=== PATIENT | male | born 1960 | race American Indian/Alaskan Native ===

== ENCOUNTER 2016-11-08 09:21 | Emergency (ER) | payer SELFPAY ==
[2016-11-08] MEDS ORDERED: DECADRON IM ONE (11:04)
[2016-11-08] MEDS ORDERED: ATROVENT IH ONE (11:04)
[2016-11-08] MEDS ORDERED: PROVENTIL IH ONE (11:04)
--- NOTE | 2016-11-08 11:10 | Emergency Department Report ---
HPI - General Chief Complaint: Adult Asthma Time Seen by Provider: 11/08/16 11:03 - HPI HPI: 55-year-old male with a history of asthma presents today with wheezing. Patient states he has been wheezing since 4 AM this morning. Positive for shortness of breath. Patient is breathing treatment and inhaler at 9 AM with temporary relief. Denies fever, chills, nausea, vomiting, chest pain, abdominal pain. ED Past Medical Hx - Past Medical History Hx Hypertension: No Hx Heart Attack/AMI: No Hx Congestive Heart Failure: No Hx Diabetes: No Hx Deep Vein Thrombosis: No Hx Pulmonary Embolism: No Hx Sickle Cell Disease: No Hx Psychiatric Treatment: Yes (DEPRESSION) Hx Asthma: Yes Hx COPD: No Hx Tuberculosis: No Hx HIV: No - Surgical History Hx Coronary Stent: No Hx Pacemaker: No Hx Internal Defibrillator: No - Social History Smoking Status: Never Smoker Substance Use Type: None - Medications Home Medications: Home Medications Medication Instructions Recorded Confirmed Last Taken Type Budesonide [Pulmicort Respules] 0.5 mg IH Q12HRT #1 nebu 08/10/16 Unknown Rx ALBUTEROL Inhaler [ProAir HFA 2 puff IH QID PRN #1 inha 11/08/16 Unknown Rx Inhaler] ALBUTEROL NEB's [Proventil 0.083% 2.5 mg IH TID PRN #30 nebu 11/08/16 Unknown Rx NEBS] Arformoterol Nebu [Brovana Nebu] 15 mcg IH Q12HRT #1 ml 11/08/16 Unknown Rx Budesoni/Formoterol 80-4.5(Nf) 2 puff IH BID #1 inha 11/08/16 Unknown Rx [Symbicort 80-4.5 (Nf)] predniSONE [Deltasone] 20 mg PO QDAY #5 tablet 11/08/16 Unknown Rx ED Review of Systems ROS: Stated complaint: ASTHMA Other details as noted in HPI Constitutional: denies: chills, fever, malaise Eyes: denies: eye pain ENT: denies: ear pain, throat pain, congestion Respiratory: shortness of breath, wheezing. denies: cough Cardiovascular: denies: chest pain, palpitations Endocrine: no symptoms reported Gastrointestinal: denies: abdominal pain, nausea, vomiting Neurological: denies: headache, weakness Physical Exam - Physical Exam Vital Signs: Vital Signs 11/08/16 09:42 Temperature 98.2 F Pulse Rate 110 H Respiratory 24 Rate Blood Pressure 140/80 O2 Sat by Pulse 99 Oximetry Physical Exam: GENERAL: The patient is well-developed and well-nourished. Patient is in NAD. HEAD: Normocephalic. Atraumatic. THROAT: No erythema, swelling or exudates. CHEST/LUNGS: Positive for expiratory wheezing. HEART/CARDIOVASCULAR: Tachycardic. Regular rhythm. ABDOMEN: Abdomen is soft, nontender. No guarding or rebound tenderness. EXTREMITIES: Peripheral pulses intact. Capillary refill less than 2 seconds. NEURO: Alert and oriented x 3. Normal gait. ED Course Vital Signs 11/08/16 09:42 Temperature 98.2 F Pulse Rate 110 H Respiratory 24 Rate Blood Pressure 140/80 O2 Sat by Pulse 99 Oximetry ED Medical Decision Making - Lab Data Vital Signs 11/08/16 11/08/16 09:42 12:08 Temperature 98.2 F Pulse Rate 110 H 95 H Respiratory 24 20 Rate Blood Pressure 140/80 Blood Pressure 139/84 [Right] O2 Sat by Pulse 99 100 Oximetry - Medical Decision Making 55-year-old male presents today with exacerbation. Patient was given Albuterol , Atrovent and Decadron. Lung rodriguez clear to auscultation post medication. Patient is in no acute distress at this time. He will be discharged home and is encouraged to follow up with a primary care provider. He will be sent home on albuterol inhaler, albuterol neb treatment, Symbicort, prednisone and is encouraged to return to the emergency room for any worsening symptoms. Critical care attestation.: If time is entered above; I have spent that time in minutes in the direct care of this critically ill patient, excluding procedure time. ED Disposition Clinical Impression: Asthma exacerbation Disposition: DISCHARGED TO HOME OR SELFCARE Is pt being admited?: No Does the pt Need Aspirin: No Condition: Stable Instructions: Asthma (ED) Additional Instructions: Follow with primary care provider. Return to the emergency department if symptoms worsen. Prescriptions: Arformoterol Nebu [Brovana Nebu] 15 mcg IH Q12HRT #1 ml predniSONE [Deltasone] 20 mg PO QDAY #5 tablet ALBUTEROL Inhaler [ProAir HFA Inhaler] 2 puff IH QID PRN #1 inha PRN Reason: Shortness Of Breath ALBUTEROL NEB's [Proventil 0.083% NEBS] 2.5 mg IH TID PRN #30 nebu PRN Reason: Wheezing Budesoni/Formoterol 80-4.5(Nf) [Symbicort 80-4.5 (Nf)] 2 puff IH BID #1 inha Referrals: PRIMARY CARE, [Primary Care Provider] - 3-5 Days [facility] [Outside] - 3-5 Days Forms: Work/School Release Form(ED) Time of Disposition: 11:54
[2016-11-08 12:09] VITALS: BP 139/84
== END 2016-11-08 12:20 | disposition home or self-care (01) ==
LOC: ED 09:21
DX: J45.901 Unspecified asthma with (acute) exacerbation (principal); F32.9 Major depressive disorder, single episode, unspecified
CPT/HCPCS: 96372; 99282; J1100

== ENCOUNTER 2016-11-22 12:02 | Emergency (ER) | payer OTHER ==
[2016-11-22] MEDS ORDERED: DUONEB 0.5 MG-3 MG/3 ML SOLN IH ONE (12:28)
[2016-11-22] MEDS ORDERED: DELTASONE PO ONE (12:28)
--- NOTE | 2016-11-22 14:36 | Emergency Department Report ---
HPI - General Chief Complaint: Adult Asthma Time Seen by Provider: 11/22/16 14:16 - HPI HPI: Patient is a 55-year-old male presents to ED complaining of a asthma exacerbation patient since 7 AM this morning. Patient state he had a breathing treatment of at home which helps for about an hour and he started to get set tightness in his chest. Patient has a nonproductive cough intermittently throughout the day. Patient states he has all his medication at home which consists of the albuterol nebulizers, Symbicort inhaler And albuterol inhaler Patient denies fever/chills/nausea/vomiting/chest pain/abdominal pain or other problems. ED Past Medical Hx - Past Medical History Hx Hypertension: No Hx Heart Attack/AMI: No Hx Congestive Heart Failure: No Hx Diabetes: No Hx Deep Vein Thrombosis: No Hx Pulmonary Embolism: No Hx Sickle Cell Disease: No Hx Psychiatric Treatment: Yes (DEPRESSION) Hx Asthma: Yes Hx COPD: No Hx Tuberculosis: No Hx HIV: No - Surgical History Hx Coronary Stent: No Hx Pacemaker: No Hx Internal Defibrillator: No - Social History Smoking Status: Never Smoker Substance Use Type: None - Medications Home Medications: Home Medications Medication Instructions Recorded Confirmed Last Taken Type Budesonide [Pulmicort Respules] 0.5 mg IH Q12HRT #1 nebu 08/10/16 Unknown Rx ALBUTEROL Inhaler [ProAir HFA 2 puff IH QID PRN #1 inha 11/08/16 Unknown Rx Inhaler] ALBUTEROL NEB's [Proventil 0.083% 2.5 mg IH TID PRN #30 nebu 11/08/16 Unknown Rx NEBS] Arformoterol Nebu [Brovana Nebu] 15 mcg IH Q12HRT #1 ml 11/08/16 Unknown Rx Budesoni/Formoterol 80-4.5(Nf) 2 puff IH BID #1 inha 11/08/16 Unknown Rx [Symbicort 80-4.5 (Nf)] predniSONE [Deltasone] 20 mg PO QDAY #10 tablet 11/22/16 Unknown Rx ED Review of Systems ROS: Stated complaint: ASTHMA/MADDI Other details as noted in HPI Constitutional: denies: chills, fever, weakness Eyes: denies: eye pain, eye discharge, vision change ENT: denies: ear pain, throat pain, congestion Respiratory: denies: cough, shortness of breath, SOB with exertion, wheezing Cardiovascular: denies: chest pain, palpitations Endocrine: no symptoms reported Gastrointestinal: denies: abdominal pain, nausea, diarrhea Genitourinary: denies: urgency, dysuria, testicular pain, testicular mass Musculoskeletal: denies: back pain, joint swelling, arthralgia, myalgia Skin: denies: rash, lesions Neurological: denies: headache, weakness, numbness, paresthesias, confusion, abnormal gait Psychiatric: denies: anxiety, depression Hematological/Lymphatic: denies: easy bleeding, easy bruising Physical Exam - Physical Exam Vital Signs: Vital Signs 11/22/16 11/22/16 12:23 12:46 Temperature 98.0 F Pulse Rate 93 H Pulse Rate [ 89 Right Lower Lobe] Respiratory 20 Rate Respiratory 18 Rate [Right Lower Lobe] Blood Pressure 116/76 O2 Sat by Pulse 98 Oximetry Physical Exam: GENERAL: Alert and oriented x3, no apparent distress, Normal Gait, atraumatic. HEAD: Head is normocephalic and a-traumatic. EYES: Extra ocular muscles are intact. Pupils are equal, round, and reactive to light and accommodation. EARS: symetrical, atraumatic, non tender, ear canal clear and moderate cerumen, tympanic membrance non inflamed. gross auditory nml bilaterally. NOSE: Nose symetrical, Nontender,Nares appeared normal. MOUTH:Mouth is well hydrated and without lesions. Tonsils nonerythematous or swollen, Uvula midline, Tongue not elevated. Mucous membranes are moist. Posterior pharynx clear, no exudate or lesions. Patent airways. NECK: Supple. Non edematous, No carotid bruits. No lymphadenopathy or thyromegaly. LUNGS: Symetrical with respiration, No wheezing, no rales or crackles, decreased breath sounds bilaterally. HEART: S1, S2 present, regular rate and rhythm without murmur, no rubs, no gallops. ABDOMEN: No organomegaly was noted,Positive bowel sounds, soft, and non- distended. . Nontender to palpation on all Quadrants, NO CVA tenderness. EXTREMITIES/MUSCULOSKELETAL: No cyanosis, clubbing, rash, lesions or edema. Full ROM bilaterally. UE/LE Pulses 2+ bilaterally. LE and UE 5+ strength bilaterally SKIN: Warm and dry, No lesions, No ulceration or induration present. ED Course Vital Signs 11/22/16 11/22/16 12:23 12:46 Temperature 98.0 F Pulse Rate 93 H Pulse Rate [ 89 Right Lower Lobe] Respiratory 20 Rate Respiratory 18 Rate [Right Lower Lobe] Blood Pressure 116/76 O2 Sat by Pulse 98 Oximetry ED Medical Decision Making - Medical Decision Making 55-year-old male presents with asthma exacerbation. Vital signs stable. Patient oxygen saturation at 98% patient is in no respiratory distress. ED course: Patient received one respiratory breathing treatment and one 125 mg of Solu-Medrol IM. Patient reports to feeling much better after treatment and medication administration. No wheezing heard bilaterally. Patient states she still has this medication at home and does not need a refill. Discussed medical patient need for prednisone and take as prescribed. Discussed the patient told for asthma triggers. Discussed to follow up with primary care physician in 3-5 days on patient states he verbally understands and will comply to follow-up. Critical care attestation.: If time is entered above; I have spent that time in minutes in the direct care of this critically ill patient, excluding procedure time. ED Disposition Clinical Impression: Asthma exacerbation Disposition: DISCHARGED TO HOME OR SELFCARE Is pt being admited?: No Does the pt Need Aspirin: No Condition: Stable Instructions: Asthma (ED) Additional Instructions: Following instructions as discussed. Prescriptions: predniSONE [Deltasone] 20 mg PO QDAY #10 tablet Referrals: PRIMARY CARE, [Primary Care Provider] [facility]5 Days [facility] [Outside] - 3-5 Days [facility] [Outside] - 3-5 Days [facility] [Outside] - 3-5 Days Forms: Work/School Release Form(ED) Time of Disposition: 14:58
[2016-11-22 14:46] VITALS: BP 121/81
== END 2016-11-22 15:16 | disposition home or self-care (01) ==
LOC: ED 12:02
DX: J45.901 Unspecified asthma with (acute) exacerbation (principal)
CPT/HCPCS: 96372; 99282; J2930

== ENCOUNTER 2016-11-28 05:44 | Emergency (ER) | payer SELFPAY ==
[2016-11-28 05:55] VITALS: BP 127/80
[2016-11-28] MEDS ORDERED: DUONEB 0.5 MG-3 MG/3 ML SOLN IH ONE (05:58)
--- NOTE | 2016-11-28 07:31 | Emergency Department Report ---
ED Asthma HPI - General Chief Complaint: Dyspnea/Respdistress Stated Complaint: ASTHMA Time Seen by Provider: 11/28/16 07:22 Source: patient Mode of arrival: Ambulatory Limitations: No Limitations - History of Present Illness Initial Comments: This is patient's 3rd visit to this ED for asthma this month. Patient presents today complaining of chest tightness and wheezing began last night. Reports nebulizer x2 only providing 1 hour-worth of relief. Denies chest pain, productive cough, fever, chills, N/V, recent illness. States only known exposure is recent yard work and cutting down trees. Patient has been hospitalization due to asthma about 6 months ago. Reports being compliant with his meds. Denies other acute complaints today. - Related Data Previous Rx's Medication Instructions Recorded Last Taken Type Budesonide [Pulmicort Respules] 0.5 mg IH Q12HRT #1 nebu 08/10/16 Unknown Rx Arformoterol Nebu [Brovana Nebu] 15 mcg IH Q12HRT #1 ml 11/08/16 Unknown Rx Budesoni/Formoterol 80-4.5(Nf) 2 puff IH BID #1 inha 11/08/16 Unknown Rx [Symbicort 80-4.5 (Nf)] ALBUTEROL Inhaler [ProAir HFA 2 puff IH QID PRN #1 inha 11/28/16 Unknown Rx Inhaler] ALBUTEROL NEB's [Proventil 0.083% 2.5 mg IH TID PRN #30 nebu 11/28/16 Unknown Rx NEBS] predniSONE [Deltasone] 20 mg PO QDAY #10 tablet 11/28/16 Unknown Rx Allergies Allergy/AdvReac Type Severity Reaction Status Date / Time ibuprofen [From Motrin] Allergy Unknown Verified 08/30/15 18:03 Penicillins AdvReac Swelling Verified 01/07/15 11:02 ED Review of Systems ROS: Stated complaint: ASTHMA Other details as noted in HPI Comment: All other systems reviewed and negative ED Past Medical Hx - Past Medical History Previous Medical History?: Yes Hx Hypertension: No Hx Heart Attack/AMI: No Hx Congestive Heart Failure: No Hx Diabetes: No Hx Deep Vein Thrombosis: No Hx Pulmonary Embolism: No Hx Sickle Cell Disease: No Hx Psychiatric Treatment: Yes (DEPRESSION) Hx Asthma: Yes Hx COPD: No Hx Tuberculosis: No Hx HIV: No - Surgical History Past Surgical History?: Yes Hx Coronary Stent: No Hx Pacemaker: No Hx Internal Defibrillator: No - Social History Smoking Status: Never Smoker Substance Use Type: None - Medications Home Medications: Home Medications Medication Instructions Recorded Confirmed Last Taken Type Budesonide [Pulmicort Respules] 0.5 mg IH Q12HRT #1 nebu 08/10/16 Unknown Rx Arformoterol Nebu [Brovana Nebu] 15 mcg IH Q12HRT #1 ml 11/08/16 Unknown Rx Budesoni/Formoterol 80-4.5(Nf) 2 puff IH BID #1 inha 11/08/16 Unknown Rx [Symbicort 80-4.5 (Nf)] ALBUTEROL Inhaler [ProAir HFA 2 puff IH QID PRN #1 inha 11/28/16 Unknown Rx Inhaler] ALBUTEROL NEB's [Proventil 0.083% 2.5 mg IH TID PRN #30 nebu 11/28/16 Unknown Rx NEBS] predniSONE [Deltasone] 20 mg PO QDAY #10 tablet 11/28/16 Unknown Rx ED Physical Exam - General Limitations: No Limitations General appearance: alert, in no apparent distress - Head Head exam: Present: atraumatic, normocephalic - Eye Eye exam: Present: normal appearance, PERRL, EOMI. Absent: scleral icterus, conjunctival injection, periorbital swelling, periorbital tenderness - ENT ENT exam: Present: normal orophraynx, mucous membranes moist, TM's normal bilaterally, normal external ear exam - Neck Neck exam: Present: normal inspection, full ROM. Absent: tenderness, meningismus, lymphadenopathy - Respiratory Respiratory exam: Present: wheezes (b/l ), decreased breath sounds (b/l lung base). Absent: respiratory distress, rales, rhonchi, stridor, chest wall tenderness, accessory muscle use, prolonged expiratory - Cardiovascular Cardiovascular Exam: Present: regular rate, normal rhythm - GI/Abdominal GI/Abdominal exam: Present: soft, normal bowel sounds. Absent: tenderness - Extremities Exam Extremities exam: Present: normal inspection, full ROM, normal capillary refill. Absent: tenderness, pedal edema, joint swelling, calf tenderness - Neurological Exam Neurological exam: Present: alert, oriented X3, normal gait, reflexes normal. Absent: motor sensory deficit - Psychiatric Psychiatric exam: Present: normal affect, normal mood - Skin Skin exam: Present: warm, dry, intact, normal color. Absent: rash, cyanosis, diaphoretic, pallor ED Course Vital Signs 11/28/16 11/28/16 05:49 06:25 Temperature 97.8 F Pulse Rate 93 H Pulse Rate [ 87 Throughout] Respiratory 22 Rate Respiratory 16 Rate [ Throughout] Blood Pressure 127/80 O2 Sat by Pulse 100 Oximetry ED Medical Decision Making - Medical Decision Making 56 YOM with acute asthma exacerbation. He reports breathing better post Solu- Medrol and to admit administration here ED. Patient is Stable. He will be DC'd on oral prednisone, albuterol inhaler and nebulizer (see prescriptions). Patient education, follow-up/referral, and return instructions provided. He verbalized understanding and is agreeable to plan. Critical care attestation.: If time is entered above; I have spent that time in minutes in the direct care of this critically ill patient, excluding procedure time. ED Disposition Clinical Impression: Asthma exacerbation Disposition: DISCHARGED TO HOME OR SELFCARE Is pt being admited?: No Does the pt Need Aspirin: No Condition: Stable Instructions: Asthma (ED) Additional Instructions: Follow instructions for care. Be compliant with and use medications as prescribed. Avoid known allergens and asthma aggravators. Follow-up with your PCP in 2-3 days for follow-up. Return to the ED for new or worsening conditions. Prescriptions: predniSONE [Deltasone] 20 mg PO QDAY #10 tablet ALBUTEROL Inhaler [ProAir HFA Inhaler] 2 puff IH QID PRN #1 inha PRN Reason: Shortness Of Breath ALBUTEROL NEB's [Proventil 0.083% NEBS] 2.5 mg IH TID PRN #30 nebu PRN Reason: Wheezing Referrals: [facility] [Outside] - 2-3 Days PRIMARY CARE, [Primary Care Provider] - 2-3 Days ALISON PIERRE MD [Staff Physician] - 2-3 Days
== END 2016-11-28 07:51 | disposition home or self-care (01) ==
LOC: ED 05:44
DX: J45.901 Unspecified asthma with (acute) exacerbation (principal); F32.9 Major depressive disorder, single episode, unspecified; Z88.0 Allergy status to penicillin; Z88.6 Allergy status to analgesic agent
CPT/HCPCS: 94640; 96372; 99282; J2930

== ENCOUNTER 2017-01-15 19:44 | Emergency (ER) | payer SELFPAY ==
[2017-01-15] MEDS ORDERED: DELTASONE PO ONE (21:55)
[2017-01-15] MEDS ORDERED: DUONEB 0.5 MG-3 MG/3 ML SOLN IH ONE (21:55)
--- NOTE | 2017-01-15 22:30 | Emergency Department Report ---
HPI - General Chief Complaint: Adult Asthma Time Seen by Provider: 01/15/17 21:55 - HPI HPI: The patient is a 56 yo male who presents for evaluation of dyspnea. The patient has a history of asthma. The patient states that for the past 5-6 hours she has experienced dyspnea, constantly, moderate to severe, exacerbated with exertion and activity. He states that his symptoms began after cutting his lawn. The patient denies fever, cough, chest pain, syncope, hemoptysis, unilateral leg swelling, recent immobilization, history of DVT or PE. ED Past Medical Hx - Past Medical History Previous Medical History?: Yes Hx Hypertension: No Hx Heart Attack/AMI: No Hx Congestive Heart Failure: No Hx Diabetes: No Hx Deep Vein Thrombosis: No Hx Pulmonary Embolism: No Hx Sickle Cell Disease: No Hx Psychiatric Treatment: Yes (DEPRESSION) Hx Asthma: Yes Hx COPD: No Hx Tuberculosis: No Hx HIV: No - Surgical History Past Surgical History?: No Hx Coronary Stent: No Hx Pacemaker: No Hx Internal Defibrillator: No - Social History Smoking Status: Never Smoker Substance Use Type: None - Medications Home Medications: Home Medications Medication Instructions Recorded Confirmed Last Taken Type Budesonide [Pulmicort Respules] 0.5 mg IH Q12HRT #1 nebu 08/10/16 Unknown Rx Arformoterol Nebu [Brovana Nebu] 15 mcg IH Q12HRT #1 ml 11/08/16 Unknown Rx Budesoni/Formoterol 80-4.5(Nf) 2 puff IH BID #1 inha 11/08/16 Unknown Rx [Symbicort 80-4.5 (Nf)] ALBUTEROL Inhaler [ProAir HFA 2 puff IH QID PRN #1 inha 11/28/16 Unknown Rx Inhaler] ALBUTEROL NEB's [Proventil 0.083% 2.5 mg IH TID PRN #30 nebu 11/28/16 Unknown Rx NEBS] predniSONE [Deltasone] 20 mg PO QDAY #10 tablet 11/28/16 Unknown Rx ALBUTEROL Inhaler [ProAir HFA 2 puff IH QID PRN #1 inhalation 01/15/17 Unknown Rx Inhaler] predniSONE [Deltasone] 20 mg PO QDAY #5 tab 01/15/17 Unknown Rx ED Review of Systems ROS: Stated complaint: ASTHMA Other details as noted in HPI Constitutional: denies: fever ENT: denies: throat or neck pain Respiratory: denies: cough reports shortness of breath Cardiovascular: denies: chest pain Endocrine: denies unexplained weight loss or gain Gastrointestinal: denies: abdominal pain, nausea Genitourinary: denies: dysuria Musculoskeletal: denies: leg swelling Skin: denies: rash Neurological: denies: headache Hematological/Lymphatic: denies: easy bleeding or easy bruising Psych: denies sadness or hopelessness Physical Exam - Physical Exam Vital Signs: Vital Signs 01/15/17 20:32 Temperature 98.2 F Pulse Rate 109 H Blood Pressure 138/83 O2 Sat by Pulse 97 Oximetry Physical Exam: General: well-nourished, well-developed, no acute distress Head: Normocephalic, atraumatic Eyes: normal sclera ENT: Mucous membranes are pink and moist Neck: trachea midline, neck supple, No neck stiffness, no cervical adenopathy Respiratory: Diminished breath sounds and wheezing present throughout lung rodriguez bilaterally, no costal retractions, no respiratory distress Cardio: S1 and S2 present, no murmurs, rubs, gallops, capillary refill is brisk Abdomen: Normoactive bowel sounds, soft abdomen, no rigidity, no guarding or rebound tenderness Musc: No pitting edema Skin: No rash Neuro: no facial drooping, normal speech Psych: Normal affect ED Course Vital Signs 01/15/17 20:32 Temperature 98.2 F Pulse Rate 109 H Blood Pressure 138/83 O2 Sat by Pulse 97 Oximetry ED Medical Decision Making - Medical Decision Making The patient was seen and examined by myself. The patient is placed on a front desk monitor and continuous pulse ox. On initial evaluation, the patient was found to be in no distress. Evaluation orders were placed. The patient is given a breathing treatment and prednisone for txt of COPD. The patient was reevaluated and reported that their symptoms were markedly improved. The patient is stable for discharge with outpatient follow-up. The patient is given follow-up and return instructions. The patient expressed understanding and agreed with the plan. The patient is given a prescription for prednisone. The patient is discharged in stable condition. Critical care attestation.: If time is entered above; I have spent that time in minutes in the direct care of this critically ill patient, excluding procedure time. ED Disposition Clinical Impression: Asthma exacerbation Disposition: DISCHARGED TO HOME OR SELFCARE Is pt being admited?: No Does the pt Need Aspirin: No Condition: Stable Instructions: Asthma (ED) Referrals: [facility] [Outside] - 3-5 Days Time of Disposition: 22:14
[2017-01-15 23:27] VITALS: BP 109/73
== END 2017-01-15 23:26 | disposition home or self-care (01) ==
LOC: ED 19:44
DX: J45.901 Unspecified asthma with (acute) exacerbation (principal); F32.9 Major depressive disorder, single episode, unspecified
CPT/HCPCS: 94640; 99283; J7512

== ENCOUNTER 2017-01-18 04:51 | Emergency (ER) | payer SELFPAY ==
[2017-01-18] MEDS ORDERED: MAGNESIUM SULFATE 2GM/50ML 2 GM/50 ML BAG IV ONE (05:07)
[2017-01-18 05:56] LABS: Anion Gap 16 mmol/L; BUN/Creatinine Ratio 7.69; Blood Urea Nitrogen 10 mg/dL (9-20); Calcium 8.7 mg/dL (8.4-10.2); Carbon Dioxide 26 mmol/L (22-30); Chloride 102.1 mmol/L (98-107); Glucose 107 mg/dL (75-100); Potassium 3.5 mmol/L (3.6-5.0); Sodium 141 mmol/L (137-145)
[2017-01-18 06:03] LABS: Basophils % (Auto) 0.9 % (0.0-1.8); Eosinophils % (Auto) 4.6 % (0.0-4.3); Hematocrit 41.6 % (35.5-45.6); Hemoglobin 13.2 gm/dl (11.8-15.2); Mean Corpuscular HGB Conc 32 % (32-34); Mean Corpuscular Hemoglobin 25 pg (28-32); Mean Corpuscular Volume 80 fl (84-94); Platelet Count 295 K/mm3 (140-440); Red Blood Count 5.22 M/mm3 (3.65-5.03); Red Cell Distribution Width 15.3 % (13.2-15.2); White Blood Count 8.5 K/mm3 (4.5-11.0)
--- NOTE | 2017-01-18 06:40 | Emergency Department Report ---
ED Asthma HPI - General Chief Complaint: Adult Asthma Stated Complaint: ASTHMA Time Seen by Provider: 01/18/17 06:13 Source: patient, EMS Mode of arrival: Stretcher Limitations: No Limitations - History of Present Illness Initial Comments: 56-year-old male presents to the emergency department via EMS complaining of difficulty breathing. Patient states he was outside yesterday afternoon cutting grass and began having difficulty breathing. He states he used his last abuse or nebulizer yesterday evening with minimal relief. Symptom onset was at approximately 6:30 PM. Patient states his symptoms progressively worsened during the night until he called EMS. En route to the emergency department, the patient was administered be drawn nebulizer and Solu-Medrol by EMS. Prior to my seeing the patient, the patient was administered more albuterol and 2 g of magnesium. At this time, the patient states he is feeling much better and has no complaints. MD Complaint: "asthma attack" -: Gradual, days(s) (1) Severity: moderate Context: allergen exposure Associated Symptoms: none Treatments Prior to Arrival: inhaled bronchodilator, IV steroid - Related Data Previous Rx's Medication Instructions Recorded Last Taken Type ALBUTEROL NEB's [Proventil 0.083% 2.5 mg IH TID PRN #30 neb 01/18/17 Unknown Rx NEBS] Albuterol Sulfate [Ventolin HFA] 2 puff IH Q4H PRN #1 hfa.aer.ad 01/18/17 Unknown Rx predniSONE [Deltasone] 3 tab PO QDAY #15 tab 01/18/17 Unknown Rx Allergies Allergy/AdvReac Type Severity Reaction Status Date / Time ibuprofen [From Motrin] Allergy Unknown Verified 01/15/17 20:32 Penicillins AdvReac Swelling Verified 01/15/17 20:32 ED Review of Systems ROS: Stated complaint: ASTHMA Other details as noted in HPI Comment: All other systems reviewed and negative Respiratory: shortness of breath, wheezing ED Past Medical Hx - Past Medical History Previous Medical History?: Yes Hx Hypertension: No Hx Heart Attack/AMI: No Hx Congestive Heart Failure: No Hx Diabetes: No Hx Deep Vein Thrombosis: No Hx Pulmonary Embolism: No Hx Sickle Cell Disease: No Hx Psychiatric Treatment: Yes (DEPRESSION) Hx Asthma: Yes Hx COPD: No Hx Tuberculosis: No Hx HIV: No - Surgical History Past Surgical History?: No Hx Coronary Stent: No Hx Pacemaker: No Hx Internal Defibrillator: No - Family History Family history: no significant - Social History Smoking Status: Former Smoker Substance Use Type: None - Medications Home Medications: Home Medications Medication Instructions Recorded Confirmed Last Taken Type ALBUTEROL NEB's [Proventil 0.083% 2.5 mg IH TID PRN #30 neb 01/18/17 Unknown Rx NEBS] Albuterol Sulfate [Ventolin HFA] 2 puff IH Q4H PRN #1 hfa.aer.ad 01/18/17 Unknown Rx predniSONE [Deltasone] 3 tab PO QDAY #15 tab 01/18/17 Unknown Rx ED Physical Exam - General Limitations: No Limitations General appearance: alert, in no apparent distress - Head Head exam: Present: atraumatic, normocephalic - Eye Eye exam: Present: normal appearance, PERRL, EOMI - ENT ENT exam: Present: normal exam, normal orophraynx, mucous membranes moist - Neck Neck exam: Present: normal inspection, full ROM. Absent: tenderness - Respiratory Respiratory exam: Present: normal lung sounds bilaterally. Absent: respiratory distress - Cardiovascular Cardiovascular Exam: Present: regular rate, normal rhythm, normal heart sounds - GI/Abdominal GI/Abdominal exam: Present: soft, normal bowel sounds. Absent: distended, tenderness - Extremities Exam Extremities exam: Present: normal inspection, full ROM. Absent: tenderness - Back Exam Back exam: Present: normal inspection, full ROM. Absent: tenderness - Neurological Exam Neurological exam: Present: alert, oriented X3. Absent: motor sensory deficit - Skin Skin exam: Present: warm, dry, intact ED Course Vital Signs 01/18/17 01/18/17 01/18/17 04:59 05:00 05:15 Pulse Rate 91 H Respiratory 29 H Rate Blood Pressure 109/90 109/90 131/68 O2 Sat by Pulse 97 96 98 Oximetry 01/18/17 01/18/17 05:20 06:11 Pulse Rate 89 Respiratory Rate Blood Pressure 137/75 O2 Sat by Pulse 96 94 Oximetry ED Medical Decision Making - Lab Data Result diagrams: 01/18/17 05:24 01/18/17 05:24 - EKG Data -: EKG Interpreted by [facility] EKG shows normal: sinus rhythm, axis, intervals, QRS complexes, ST-T waves Rate: normal - EKG Data When compared to previous EKG there are: no significant change Interpretation: normal EKG, unchanged when compared t (07/30/2016) - Radiology Data Radiology results: image reviewed interpreted by me: Chest x-ray shows no acute cardiopulmonary abnormality. - Medical Decision Making Lab and imaging results reviewed and discussed with the patient. Patient reports symptoms have resolved with medication. Patient will be discharged home with prescriptions for an albuterol inhaler, albuterol nebulizer, and oral steroids to follow up with his primary care physician. - Differential Diagnosis asthma exacerbation Critical care attestation.: If time is entered above; I have spent that time in minutes in the direct care of this critically ill patient, excluding procedure time. ED Disposition Clinical Impression: Asthma exacerbation Disposition: DISCHARGED TO HOME OR SELFCARE Is pt being admited?: No Condition: Stable Instructions: Asthma (ED) Prescriptions: ALBUTEROL NEB's [Proventil 0.083% NEBS] 2.5 mg IH TID PRN #30 neb PRN Reason: Wheezing Albuterol Sulfate [Ventolin HFA] 2 puff IH Q4H PRN #1 hfa.aer.ad PRN Reason: Shortness Of Breath predniSONE [Deltasone] 3 tab PO QDAY #15 tab Referrals: PRIMARY CARE, [Primary Care Provider] - 3-5 Days Time of Disposition: 06:39
[2017-01-18 06:51] VITALS: BP 125/83
--- NOTE | 2017-01-18 07:34 | XRay Report ---
Chest 2 views: History: Shortness of breath. Findings: Normal cardiomediastinal silhouette. Trachea is midline. No consolidation, pneumothorax or pleural effusion. Impression: No acute cardiopulmonary findings.
== END 2017-01-18 06:50 | disposition home or self-care (01) ==
LOC: ED 04:51
DX: J45.901 Unspecified asthma with (acute) exacerbation (principal); Z88.0 Allergy status to penicillin; Z88.6 Allergy status to analgesic agent
CPT/HCPCS: 36415; 71020; 80048; 84484; 85025; 93005; 93010; 96374; 99284; J3475

== ENCOUNTER 2017-03-21 22:30 | Emergency (ER) | payer SELFPAY | END 2017-03-21 22:31 | disposition left against medical advice (07) | LOC: ED 22:30 | DX: J45.909 Unspecified asthma, uncomplicated (principal); Z88.0 Allergy status to penicillin; Z88.6 Allergy status to analgesic agent; Z53.21 Procedure and treatment not carried out due to patient leaving prior to being seen by health care provider ==

== ENCOUNTER 2019-11-19 22:26 | Emergency (ER) | payer MEDICARE ==
[2019-11-19 22:35] VITALS: BP 136/107
--- NOTE | 2019-11-19 22:35 | Event Note ---
ED Screening Note Date of service: 11/19/19 Time: 22:34 ED Screening Note: 58 y o male who presents with prod cough with fever PMH: asthma,copd cc of cp worsejning had flu recently 2 weeks This initial assessment/diagnostic orders/clinical plan/treatment(s) is/are subject to change based on patients health status, clinical progression and re- assessment by fellow clinical providers in the ED. Further treatment and workup at subsequent clinical providers discretion. Patient/guardian urged not to elope from the ED as their condition may be serious if not clinically assessed and managed. Initial orders include: cxr duoneb acc eval
[2019-11-19] MEDS ORDERED: IPRATROPIUM/ALBUTEROL SULFATE 3 ML AMPUL.NEB IH ONE (22:36)
--- NOTE | 2019-11-19 23:00 | XRay Report ---
CHEST 2 VIEWS INDICATION: cough. COMPARISON: 10/29/2019 FINDINGS: Support devices: None. Heart: Within normal limits. Lungs: Airspace changes present right lower lobe. Bronchovascular markings are prominent. Pleura: No significant pleural effusion. No pneumothorax. Additional findings: None. IMPRESSION: 1. Airspace changes right lower lobe consistent with pneumonia Signer Name: Noe Ramon MD Signed: 11/19/2019 10:55 PM Workstation Name: [id number]
[2019-11-20] MEDS ORDERED: cefTRIAXone/NS 1 GM/50 ML 1 GM/50 ML BAG IV ONE (02:03)
[2019-11-20] MEDS ORDERED: dexAMETHasone 20 MG/5 ML VIAL IV ONE (02:03)
[2019-11-20] MEDS ORDERED: ALBUTEROL 2.5 MG/3 ML NEBU IH ONE (02:03)
[2019-11-20 02:49] LABS: Hematocrit 41.3 % (35.5-45.6); Hemoglobin 13.5 gm/dl (11.8-15.2); Mean Corpuscular HGB Conc 33 % (32-34); Mean Corpuscular Volume 80 fl (84-94); Platelet Count 290 K/mm3 (140-440); Red Blood Count 5.14 M/mm3 (3.65-5.03)
[2019-11-20 03:39] LABS: Alanine Aminotransferase 14 units/L (7-56); BUN/Creatinine Ratio 9; Blood Urea Nitrogen 10 mg/dL (9-20); Calcium 9.1 mg/dL (8.4-10.2); Hemolysis Index 25
--- NOTE | 2019-11-20 05:03 | Emergency Department Report ---
ED Shortness of Breath HPI - General Chief Complaint: Dyspnea/Respdistress Stated Complaint: COUGH/ASTHMA Time Seen by Provider: 11/20/19 01:58 Source: patient, EMS Mode of arrival: Wheelchair Limitations: Physical Limitation - History of Present Illness Initial Comments: Mr. Serrano is a 58 y/ o male who presents with prod cough with fever x 5 days. PMH: asthma,copd , had flu recently 2 weeks. Symptoms are worse in pm, coughing prevent sleep at night, symptoms are improve with inhalers. request cough control, there is no fever at this time. MD Complaint: shortness of breath, cough, pain with inspiration Onset/Timin -: days(s) Severity: moderate Pain Scale: 4 Quality: dull Consistency: intermittent Improves With: rest Worsens With: coughing, inspiration Known History Of: COPD, asthma Context: recent URI Associated Symptoms: pain with inspiration, fever, cough, sputum production Treatments Prior to Arrival: none - Related Data Previous Rx's Medication Instructions Recorded Last Taken Type ALBUTEROL NEB's [Proventil 0.083% 2.5 mg IH TID PRN #30 neb 10/30/19 Unknown Rx NEBS] Acetaminophen [Acetaminophen TAB] 1 tab PO Q4H PRN #15 tablet 10/30/19 Unknown Rx Albuterol INH(or & Nicu Only) 2 puff IH QID PRN #8.5 gram 10/30/19 Unknown Rx [ProAir HFA Inhaler] Benzonatate [Tessalon Perles] 100 mg PO Q8H #15 capsule 10/30/19 Unknown Rx Budesonide [Pulmicort Respules] 0.5 mg IH Q12HRT #30 nebu 10/30/19 Unknown Rx Ipratropium/Albuterol Sulfate 1 ampul IH Q6HRT PRN #80 ampul.neb 10/30/19 Unknown Rx [DUONEB *Not for PRN Use*] methylPREDNISolone [Medrol 4MG 1 dose PO QDAY #1 tab.ds.pk 10/30/19 Unknown Rx DOSEPAK (21 tabs)] Azithromycin [Zithromax Z-HANNAH] 250 mg PO DAILY #6 tab 11/20/19 Unknown Rx Codeine Phosphate/Guaifenesin 5 ml PO Q6H PRN #120 ml 11/20/19 Unknown Rx [Guaifenesin-Codeine Syrup] Allergies Allergy/AdvReac Type Severity Reaction Status Date / Time ibuprofen [From Motrin] Allergy Unknown Verified 01/15/17 20:32 Penicillins AdvReac Swelling Verified 01/15/17 20:32 ED Review of Systems ROS: Stated complaint: COUGH/ASTHMA Other details as noted in HPI Constitutional: chills, fever, malaise Eyes: denies: eye pain, eye discharge, vision change ENT: as per HPI, ear pain, throat pain, congestion Respiratory: cough, shortness of breath, wheezing Cardiovascular: denies: chest pain, palpitations Endocrine: no symptoms reported Gastrointestinal: denies: abdominal pain, nausea, vomiting, diarrhea Genitourinary: denies: urgency, dysuria, hematuria Musculoskeletal: denies: back pain, joint swelling, arthralgia Skin: denies: rash, lesions Neurological: denies: headache, weakness, numbness, paresthesias, confusion, vertigo Psychiatric: denies: anxiety, depression Hematological/Lymphatic: denies: easy bleeding, easy bruising ED Past Medical Hx - Past Medical History Previous Medical History?: Yes Hx Hypertension: No Hx Heart Attack/AMI: No Hx Congestive Heart Failure: No Hx Diabetes: No Hx Deep Vein Thrombosis: No Hx Pulmonary Embolism: No Hx Sickle Cell Disease: No Hx Psychiatric Treatment: Yes (DEPRESSION) Hx Asthma: Yes Hx COPD: No Hx Tuberculosis: No Hx HIV: No - Surgical History Past Surgical History?: No Hx Coronary Stent: No Hx Pacemaker: No Hx Internal Defibrillator: No - Social History Smoking Status: Former Smoker Substance Use Type: None - Medications Home Medications: Home Medications Medication Instructions Recorded Confirmed Last Taken Type ALBUTEROL NEB's [Proventil 0.083% 2.5 mg IH TID PRN #30 neb 10/30/19 Unknown Rx NEBS] Acetaminophen [Acetaminophen TAB] 1 tab PO Q4H PRN #15 tablet 10/30/19 Unknown Rx Albuterol INH(or & Nicu Only) 2 puff IH QID PRN #8.5 gram 10/30/19 Unknown Rx [ProAir HFA Inhaler] Benzonatate [Tessalon Perles] 100 mg PO Q8H #15 capsule 10/30/19 Unknown Rx Budesonide [Pulmicort Respules] 0.5 mg IH Q12HRT #30 nebu 10/30/19 Unknown Rx Ipratropium/Albuterol Sulfate 1 ampul IH Q6HRT PRN #80 ampul.neb 10/30/19 Unknown Rx [DUONEB *Not for PRN Use*] methylPREDNISolone [Medrol 4MG 1 dose PO QDAY #1 tab.ds.pk 10/30/19 Unknown Rx DOSEPAK (21 tabs)] Azithromycin [Zithromax Z-HANNAH] 250 mg PO DAILY #6 tab 11/20/19 Unknown Rx Codeine Phosphate/Guaifenesin 5 ml PO Q6H PRN #120 ml 11/20/19 Unknown Rx [Guaifenesin-Codeine Syrup] ED Physical Exam - General Limitations: Physical Limitation General appearance: alert, in no apparent distress - Head Head exam: Present: atraumatic, normocephalic - Eye Eye exam: Present: normal appearance, PERRL, EOMI Pupils: Present: normal accommodation - ENT ENT exam: Present: normal exam, normal orophraynx, mucous membranes moist, TM's normal bilaterally, normal external ear exam - Neck Neck exam: Present: normal inspection, full ROM. Absent: tenderness, lymphadenopathy, thyromegaly - Respiratory Respiratory exam: Present: normal lung sounds bilaterally, wheezes (exp only ), chest wall tenderness (right lateral chest wall ). Absent: respiratory distress, rales, rhonchi, stridor - Cardiovascular Cardiovascular Exam: Present: regular rate, normal rhythm, normal heart sounds. Absent: systolic murmur, diastolic murmur, rubs, gallop - GI/Abdominal GI/Abdominal exam: Present: soft, normal bowel sounds. Absent: distended, tenderness, guarding, rebound, rigid, bruit, hernia - Rectal Rectal exam: Present: deferred - Extremities Exam Extremities exam: Present: normal inspection, full ROM. Absent: tenderness, normal capillary refill, pedal edema, joint swelling - Back Exam Back exam: Present: normal inspection, full ROM. Absent: tenderness, CVA tenderness (R), CVA tenderness (L), muscle spasm, vertebral tenderness, rash noted - Neurological Exam Neurological exam: Present: alert, oriented X3, CN II-XII intact, normal gait - Psychiatric Psychiatric exam: Present: normal affect, normal mood - Skin Skin exam: Present: warm, dry, intact, normal color. Absent: rash, erythema ED Course Vital Signs 11/19/19 22:31 Temperature 98.2 F Pulse Rate 107 H Respiratory 20 Rate Blood Pressure 136/107 O2 Sat by Pulse 94 Oximetry ED Medical Decision Making - Lab Data Result diagrams: 11/20/19 02:27 11/20/19 02:27 Labs 11/20/19 11/20/19 02:27 02:27 WBC 12.6 H RBC 5.14 H Hgb 13.5 Hct 41.3 MCV 80 L MCH 26 L MCHC 33 RDW 16.0 H Plt Count 290 Sodium 142 Potassium 4.2 Chloride 102.3 Carbon Dioxide 26 Anion Gap 18 BUN 10 Creatinine 1.1 Estimated GFR > 60 BUN/Creatinine Ratio 9 Glucose 119 H Calcium 9.1 Total Bilirubin 0.30 AST 11 ALT 14 Alkaline Phosphatase 73 Total Protein 6.2 L Albumin 4.0 Albumin/Globulin Ratio 1.8 - Radiology Data Radiology results: report reviewed, image reviewed Ordering Physician: RHEA RICK Date of Service: 11/19/19 Procedure(s): XR chest routine 2V Accession Number(s): [id number] cc: RHEA RICK Fluoro Time In Minutes: CHEST 2 VIEWS INDICATION: cough. COMPARISON: 10/29/2019 FINDINGS: Support devices: None. Heart: Within normal limits. Lungs: Airspace changes present right lower lobe. Bronchovascular markings are prominent. Pleura: No significant pleural effusion. No pneumothorax. Additional findings: None. IMPRESSION: 1. Airspace changes right lower lobe consistent with pneumonia Signer Name: Noe Ramon MD Signed: 11/19/2019 10:55 PM Workstation Name: [id number] Transcribed By: Dictated By: Noe Ramon MD Electronically Authenticated By: Noe Ramon MD Signed Date/Time: 11/19/192254 DD/ 54 TD/TT: - Medical Decision Making Chest x-ray demonstrates a small right lower lobe pneumonia, symptoms are improved after IV Rocephin given an ED, heart rate improved there is no fever no nausea vomiting wheezing resolved after nebulizer treatment given an ED plan DC'd home with prescription for azithromycin, patient has albuterol inhalers prescribed Cheratussin when necessary cough patient will follow with PCP in 2-3 days, patient has ambulated from his room to interest to ED and back to home without increased shortness of breath or wheezing. Patient will be DC'd at this time in stable condition. Critical care attestation.: If time is entered above; I have spent that time in minutes in the direct care of this critically ill patient, excluding procedure time. ED Disposition Clinical Impression: CAP (community acquired pneumonia) Qualifiers: Laterality: right Lung location: lower lobe of lung Qualified Code(s): J18.9 - Pneumonia, unspecified organism Disposition: DC-01 TO HOME OR SELFCARE Is pt being admited?: No Does the pt Need Aspirin: No Condition: Stable Instructions: Community-acquired Pneumonia (ED) Prescriptions: Codeine Phosphate/Guaifenesin [Guaifenesin-Codeine Syrup] 5 ml PO Q6H PRN #120 ml PRN Reason: cough Azithromycin [Zithromax Z-HANNAH] 250 mg PO DAILY #6 tab Referrals: PAT NAZARIO MD [Primary Care Provider] - 3-5 Days Forms: Work/School Release Form(ED) Time of Disposition: 05:09
[2019-11-20] MEDS ORDERED: IPRATROPIUM/ALBUTEROL SULFATE 3 ML AMPUL.NEB IH ONE ×2 (05:26→05:27)
== END 2019-11-20 05:55 | disposition home or self-care (01) ==
LOC: ED 22:26
DX: J18.9 Pneumonia, unspecified organism (principal); J45.909 Unspecified asthma, uncomplicated; F32.89 Other specified depressive episodes; Z87.891 Personal history of nicotine dependence; Z88.6 Allergy status to analgesic agent; Z88.0 Allergy status to penicillin
CPT/HCPCS: 36415; 71046; 80053; 85027; 96365; 96375; 99284; J0696; J1100

== ENCOUNTER 2020-01-30 06:37 | Emergency (ER) | payer MEDICARE ==
[2020-01-30] MEDS ORDERED: IPRATROPIUM/ALBUTEROL SULFATE 3 ML AMPUL.NEB IH ONE (08:15)
[2020-01-30] MEDS ORDERED: predniSONE 50 MG TAB PO STA (08:15)
--- NOTE | 2020-01-30 09:26 | Emergency Department Report ---
ED Asthma HPI - General Chief Complaint: Adult Asthma Stated Complaint: ASTHMA Time Seen by Provider: 01/30/20 08:08 Source: patient Mode of arrival: Ambulatory Limitations: No Limitations - History of Present Illness MD Complaint: "asthma attack" Severity: mild Context: ran out of meds Associated Symptoms: productive cough - Related Data Previous Rx's Medication Instructions Recorded Last Taken Type Acetaminophen [Acetaminophen TAB] 1 tab PO Q4H PRN #15 tablet 10/30/19 Unknown Rx Benzonatate [Tessalon Perles] 100 mg PO Q8H #15 capsule 10/30/19 Unknown Rx Budesonide [Pulmicort Respules] 0.5 mg IH Q12HRT #30 nebu 10/30/19 Unknown Rx Ipratropium/Albuterol Sulfate 1 ampul IH Q6HRT PRN #80 ampul.neb 10/30/19 Unknown Rx [DUONEB *Not for PRN Use*] methylPREDNISolone [Medrol 4MG 1 dose PO QDAY #1 tab.ds.pk 10/30/19 Unknown Rx DOSEPAK (21 tabs)] Azithromycin [Zithromax Z-HANNAH] 250 mg PO DAILY #6 tab 11/20/19 Unknown Rx Codeine Phosphate/Guaifenesin 5 ml PO Q6H PRN #120 ml 11/20/19 Unknown Rx [Guaifenesin-Codeine Syrup] ALBUTEROL NEB's [Proventil 0.083% 2.5 mg IH TID PRN #30 neb 01/30/20 Unknown Rx NEBS] Albuterol INH(or & Nicu Only) 2 puff IH QID PRN #8.5 gram 01/30/20 Unknown Rx [ProAir HFA Inhaler] Budesonide/Formoterol Fumarate 1 gm IH DAILY #1 hfa.aer.ad 01/30/20 Unknown Rx [Symbicort 160-4.5 Mcg Inhaler] predniSONE [Deltasone] 50 mg PO ONCE #5 tablet 01/30/20 Unknown Rx Allergies Allergy/AdvReac Type Severity Reaction Status Date / Time ibuprofen [From Motrin] Allergy Unknown Verified 01/15/17 20:32 Penicillins AdvReac Swelling Verified 01/15/17 20:32 ED Review of Systems ROS: Stated complaint: ASTHMA Other details as noted in HPI Comment: All other systems reviewed and negative ED Past Medical Hx - Past Medical History Previous Medical History?: Yes Hx Hypertension: No Hx Heart Attack/AMI: No Hx Congestive Heart Failure: No Hx Diabetes: No Hx Deep Vein Thrombosis: No Hx Pulmonary Embolism: No Hx Sickle Cell Disease: No Hx Psychiatric Treatment: Yes (DEPRESSION) Hx Asthma: Yes Hx COPD: No Hx Tuberculosis: No Hx HIV: No - Surgical History Hx Coronary Stent: No Hx Pacemaker: No Hx Internal Defibrillator: No - Social History Smoking Status: Former Smoker Substance Use Type: None - Medications Home Medications: Home Medications Medication Instructions Recorded Confirmed Last Taken Type Acetaminophen [Acetaminophen TAB] 1 tab PO Q4H PRN #15 tablet 10/30/19 Unknown Rx Benzonatate [Tessalon Perles] 100 mg PO Q8H #15 capsule 10/30/19 Unknown Rx Budesonide [Pulmicort Respules] 0.5 mg IH Q12HRT #30 nebu 10/30/19 Unknown Rx Ipratropium/Albuterol Sulfate 1 ampul IH Q6HRT PRN #80 ampul.neb 10/30/19 Unknown Rx [DUONEB *Not for PRN Use*] methylPREDNISolone [Medrol 4MG 1 dose PO QDAY #1 tab.ds.pk 10/30/19 Unknown Rx DOSEPAK (21 tabs)] Azithromycin [Zithromax Z-HANNAH] 250 mg PO DAILY #6 tab 11/20/19 Unknown Rx Codeine Phosphate/Guaifenesin 5 ml PO Q6H PRN #120 ml 11/20/19 Unknown Rx [Guaifenesin-Codeine Syrup] ALBUTEROL NEB's [Proventil 0.083% 2.5 mg IH TID PRN #30 neb 01/30/20 Unknown Rx NEBS] Albuterol INH(or & Nicu Only) 2 puff IH QID PRN #8.5 gram 01/30/20 Unknown Rx [ProAir HFA Inhaler] Budesonide/Formoterol Fumarate 1 gm IH DAILY #1 hfa.aer.ad 01/30/20 Unknown Rx [Symbicort 160-4.5 Mcg Inhaler] predniSONE [Deltasone] 50 mg PO ONCE #5 tablet 01/30/20 Unknown Rx ED Physical Exam - General Limitations: No Limitations General appearance: alert, in no apparent distress - Head Head exam: Present: atraumatic, normocephalic - Eye Eye exam: Present: normal appearance - ENT ENT exam: Present: mucous membranes moist - Neck Neck exam: Present: normal inspection - Respiratory Respiratory exam: Present: normal lung sounds bilaterally, wheezes. Absent: respiratory distress, chest wall tenderness - Cardiovascular Cardiovascular Exam: Present: regular rate, normal rhythm. Absent: systolic murmur, diastolic murmur, rubs, gallop - GI/Abdominal GI/Abdominal exam: Present: soft, normal bowel sounds - Rectal Rectal exam: Present: deferred - Extremities Exam Extremities exam: Present: normal inspection - Back Exam Back exam: Present: normal inspection - Neurological Exam Neurological exam: Present: alert, oriented X3 - Psychiatric Psychiatric exam: Present: normal affect, normal mood - Skin Skin exam: Present: warm, dry, intact, normal color. Absent: rash ED Course Vital Signs 01/30/20 06:41 Pulse Rate 97 H Respiratory 18 Rate Blood Pressure 119/80 O2 Sat by Pulse 97 Oximetry ED Medical Decision Making - Radiology Data Radiology results: report reviewed - Medical Decision Making No altered mental status, saddle respirations, belly breathing or other signs of impending ventilatory failure. No intubations or recent admissions to the hospital for asthma. Unlikely pneumonia, CHF, COPD, GERD. Since symptoms had arisen after running out of home medications which she seeks a refill. Note no fever no chest pain no foreign travel no known sick contacts Therapies: Prednisone 50 mg PO. Albuterol nebulizer Reassessment: Patient improved with albuterol and ipratropium in less than 3 hours. Disposition: Discharge home with return precautions. Advised to follow up with primary care physician within next 24-48 hours. Aside from this acute exacerbation patient has been well controlled on baseline home regimen. Rx short steroid course, albuterol, Symbicort Critical care attestation.: If time is entered above; I have spent that time in minutes in the direct care of this critically ill patient, excluding procedure time. ED Disposition Clinical Impression: Asthma Disposition: - TO HOME OR SELFCARE Is pt being admited?: No Does the pt Need Aspirin: No Condition: Stable Instructions: Asthma (ED), Reactive Airways Disease (ED) Prescriptions: predniSONE [Deltasone] 50 mg PO ONCE #5 tablet Albuterol INH(or & Nicu Only) [ProAir HFA Inhaler] 2 puff IH QID PRN #8.5 gram PRN Reason: Shortness Of Breath ALBUTEROL NEB's [Proventil 0.083% NEBS] 2.5 mg IH TID PRN #30 neb PRN Reason: Wheezing Budesonide/Formoterol Fumarate [Symbicort 160-4.5 Mcg Inhaler] 1 gm IH DAILY #1 hfa.aer.ad Referrals: PRIMARY CARE, [Primary Care Provider] - 3-5 Days
[2020-01-30 09:51] VITALS: BP 120/80
== END 2020-01-30 09:49 | disposition home or self-care (01) ==
LOC: ED 06:37
DX: J45.909 Unspecified asthma, uncomplicated (principal); F32.9 Major depressive disorder, single episode, unspecified
CPT/HCPCS: 94640; 99282; J7512

== ENCOUNTER 2020-03-25 08:07 | Emergency (ER) | payer MEDICARE ==
[2020-03-25] MEDS ORDERED: SODIUM CHLORIDE 0.9% 1000 ML 1,000 ML IV ONE (09:16)
[2020-03-25] MEDS ORDERED: methylPREDNISolone Sod Succinate 125 MG/2 ML INJ IV ONE (09:16)
[2020-03-25] MEDS ORDERED: ALBUTEROL 2.5 MG/3 ML NEBU IH ONE (09:16)
[2020-03-25] MEDS ORDERED: IPRATROPIUM 0.02% NEBU 2.5 ML IH ONE (09:16)
[2020-03-25] MEDS ORDERED: MAGNESIUM SULFATE 2 GM/50 ML BAG IV ONE (09:16)
[2020-03-25] MEDS ORDERED: diphenhydrAMINE 50 MG/ML VIAL IV STA (09:17)
--- NOTE | 2020-03-25 09:24 | Emergency Department Report ---
ED Asthma HPI - General Chief Complaint: Adult Asthma Stated Complaint: ASTHMA/TROUBLE BREATHING Time Seen by Provider: 03/25/20 09:01 Source: patient Mode of arrival: Ambulatory Limitations: No Limitations - History of Present Illness Initial Comments: 59-year-old F [place] male resents emerged department complaining of an asthma flareup which started earlier this morning for reasons unknown. Try to without the symptoms but did not improve so he came to the emergency department for further treatment options. He was last seen in January 30, 2020 for a similar episode and then again on October 30, 2019 for a similar episode as he was discharged home with asthma medications. MD Complaint: wheezing -: During the night (started around 4 am), This morning Asthma History: other (Known history of asthma which is followed by his primary care provider) Severity: moderate Context: ran out of meds Associated Symptoms: none - Related Data Previous Rx's Medication Instructions Recorded Last Taken Type Acetaminophen [Acetaminophen TAB] 1 tab PO Q4H PRN #15 tablet 10/30/19 Unknown Rx Benzonatate [Tessalon Perles] 100 mg PO Q8H #15 capsule 10/30/19 Unknown Rx Ipratropium/Albuterol Sulfate 1 ampul IH Q6HRT PRN #80 ampul.neb 10/30/19 Unknown Rx [DUONEB *Not for PRN Use*] methylPREDNISolone [Medrol 4MG 1 dose PO QDAY #1 tab.ds.pk 10/30/19 Unknown Rx DOSEPAK (21 tabs)] Azithromycin [Zithromax Z-HANNAH] 250 mg PO DAILY #6 tab 11/20/19 Unknown Rx Codeine Phosphate/Guaifenesin 5 ml PO Q6H PRN #120 ml 11/20/19 Unknown Rx [Guaifenesin-Codeine Syrup] ALBUTEROL NEB's [Proventil 0.083% 2.5 mg IH TID PRN #30 neb 03/25/20 Unknown Rx NEBS] Albuterol INH(or & Nicu Only) 2 puff IH QID PRN #8.5 gram 03/25/20 Unknown Rx [ProAir HFA Inhaler] Budesonide [Pulmicort Respules] 0.5 mg IH Q12HRT #30 nebu 03/25/20 Unknown Rx Budesonide/Formoterol Fumarate 1 gm IH DAILY #1 hfa.aer.ad 03/25/20 Unknown Rx [Symbicort 160-4.5 Mcg Inhaler] predniSONE [Deltasone] 50 mg PO ONCE #5 tablet 03/25/20 Unknown Rx Allergies Allergy/AdvReac Type Severity Reaction Status Date / Time ibuprofen [From Motrin] Allergy Unknown Verified 03/25/20 08:21 Penicillins AdvReac Swelling Verified 03/25/20 08:21 ED Review of Systems ROS: Stated complaint: ASTHMA/TROUBLE BREATHING Other details as noted in HPI Comment: All other systems reviewed and negative ED Past Medical Hx - Past Medical History Hx Hypertension: No Hx Heart Attack/AMI: No Hx Congestive Heart Failure: No Hx Diabetes: No Hx Deep Vein Thrombosis: No Hx Pulmonary Embolism: No Hx Sickle Cell Disease: No Hx Psychiatric Treatment: (DEPRESSION) Hx Asthma: Yes Hx COPD: No Hx Tuberculosis: No Hx HIV: No - Surgical History Hx Coronary Stent: No Hx Pacemaker: No Hx Internal Defibrillator: No - Social History Smoking Status: Never Smoker Substance Use Type: None - Medications Home Medications: Home Medications Medication Instructions Recorded Confirmed Last Taken Type Acetaminophen [Acetaminophen TAB] 1 tab PO Q4H PRN #15 tablet 10/30/19 Unknown Rx Benzonatate [Tessalon Perles] 100 mg PO Q8H #15 capsule 10/30/19 Unknown Rx Ipratropium/Albuterol Sulfate 1 ampul IH Q6HRT PRN #80 ampul.neb 10/30/19 Unknown Rx [DUONEB *Not for PRN Use*] methylPREDNISolone [Medrol 4MG 1 dose PO QDAY #1 tab.ds.pk 10/30/19 Unknown Rx DOSEPAK (21 tabs)] Azithromycin [Zithromax Z-HANNAH] 250 mg PO DAILY #6 tab 11/20/19 Unknown Rx Codeine Phosphate/Guaifenesin 5 ml PO Q6H PRN #120 ml 11/20/19 Unknown Rx [Guaifenesin-Codeine Syrup] ALBUTEROL NEB's [Proventil 0.083% 2.5 mg IH TID PRN #30 neb 03/25/20 Unknown Rx NEBS] Albuterol INH(or & Nicu Only) 2 puff IH QID PRN #8.5 gram 03/25/20 Unknown Rx [ProAir HFA Inhaler] Budesonide [Pulmicort Respules] 0.5 mg IH Q12HRT #30 nebu 03/25/20 Unknown Rx Budesonide/Formoterol Fumarate 1 gm IH DAILY #1 hfa.aer.ad 03/25/20 Unknown Rx [Symbicort 160-4.5 Mcg Inhaler] predniSONE [Deltasone] 50 mg PO ONCE #5 tablet 03/25/20 Unknown Rx ED Physical Exam - General Limitations: No Limitations General appearance: alert, in no apparent distress - Head Head exam: Present: atraumatic, normocephalic - Eye Eye exam: Present: normal appearance - ENT ENT exam: Present: mucous membranes moist - Neck Neck exam: Present: normal inspection - Respiratory Respiratory exam: Present: normal lung sounds bilaterally, wheezes, decreased breath sounds. Absent: respiratory distress - Cardiovascular Cardiovascular Exam: Present: regular rate, normal rhythm. Absent: systolic murmur, diastolic murmur, rubs, gallop - GI/Abdominal GI/Abdominal exam: Present: soft, normal bowel sounds - Rectal Rectal exam: Present: deferred - Extremities Exam Extremities exam: Present: normal inspection - Back Exam Back exam: Present: normal inspection - Neurological Exam Neurological exam: Present: alert, oriented X3 - Psychiatric Psychiatric exam: Present: normal affect, normal mood - Skin Skin exam: Present: warm, dry, intact, normal color. Absent: rash ED Course Vital Signs 03/25/20 03/25/20 03/25/20 08:22 08:41 08:43 Temperature 98 F Pulse Rate 67 94 H Respiratory 18 24 24 Rate Blood Pressure 119/77 Blood Pressure [Right] O2 Sat by Pulse 98 97 97 Oximetry 03/25/20 10:45 Temperature Pulse Rate 86 Respiratory 20 Rate Blood Pressure Blood Pressure 138/89 [Right] O2 Sat by Pulse 98 Oximetry ED Medical Decision Making - Radiology Data Radiology results: report reviewed Chest x-ray is clear no no infiltrate or effusion. - Medical Decision Making No altered mental status, saddle respirations, belly breathing or other signs of impending ventilatory failure. No intubations or recent admissions to the hospital for asthma. Unlikely pneumonia, CHF, COPD, GERD Workup Review include a chest x-ray which was normal he also received steroids and albuterol Therapies: Prednisone 50 mg PO. Albuterol nebulizer Reassessment: Patient improved with albuterol and ipratropium in less than 3 hours. Disposition: Discharge home with return precautions. Advised to follow up with primary care physician within next 24-48 hours. Also discussed with patient the importance of medical compliance and being sure to have the appropriate amount of medications needed at most of his exacerbations seem to occur when he is run out of his medications Aside from this acute exacerbation patient has been well controlled on baseline home regimen. Rx short steroid course, albuterol, Singulair, Flovent Critical care attestation.: If time is entered above; I have spent that time in minutes in the direct care of this critically ill patient, excluding procedure time. ED Disposition Clinical Impression: Asthma Disposition: DC-01 TO HOME OR SELFCARE Is pt being admited?: No Does the pt Need Aspirin: No Condition: Stable Instructions: Asthma (ED) Prescriptions: predniSONE [Deltasone] 50 mg PO ONCE #5 tablet Albuterol INH(or & Nicu Only) [ProAir HFA Inhaler] 2 puff IH QID PRN #8.5 gram PRN Reason: Shortness Of Breath ALBUTEROL NEB's [Proventil 0.083% NEBS] 2.5 mg IH TID PRN #30 neb PRN Reason: Wheezing Budesonide [Pulmicort Respules] 0.5 mg IH Q12HRT #30 nebu Budesonide/Formoterol Fumarate [Symbicort 160-4.5 Mcg Inhaler] 1 gm IH DAILY #1 hfa.aer.ad Referrals: PAT NAZARIO MD [Primary Care Provider] - 3-5 Days
--- NOTE | 2020-03-25 10:00 | XRay Report ---
CHEST 1 VIEW INDICATION / CLINICAL INFORMATION: Asthma. Cough COMPARISON: None available. FINDINGS: SUPPORT DEVICES: None. HEART / MEDIASTINUM: No significant abnormality. LUNGS / PLEURA: No significant pulmonary or pleural abnormality. No pneumothorax. ADDITIONAL FINDINGS: No significant additional findings. IMPRESSION: 1. No acute findings. Signer Name: John Anaya MD Signed: 03/25/2020 9:56 AM Workstation Name: [id number]
[2020-03-25 10:53] VITALS: BP 138/89
== END 2020-03-25 12:48 | disposition home or self-care (01) ==
LOC: ED 08:07
DX: J45.909 Unspecified asthma, uncomplicated (principal); F32.9 Major depressive disorder, single episode, unspecified; Z79.2 Long term (current) use of antibiotics; Z79.899 Other long term (current) drug therapy; Z88.0 Allergy status to penicillin; Z88.6 Allergy status to analgesic agent
CPT/HCPCS: 71045; 94640; 96365; 96375; 99284; J1200; J2930; J3475; J7030

== ENCOUNTER 2020-05-17 17:11 | Emergency (ER) | payer MEDICARE ==
[2020-05-17] MEDS ORDERED: dexAMETHasone 20 MG/5 ML VIAL IV ONE (18:39)
[2020-05-17] MEDS ORDERED: IPRATROPIUM 0.02% NEBU 2.5 ML IH ONE ×2 (18:39→20:41)
[2020-05-17] MEDS ORDERED: ALBUTEROL 2.5 MG/3 ML NEBU IH ONE ×2 (18:39→20:41)
--- NOTE | 2020-05-17 18:40 | Emergency Department Report ---
Blank Doc - Documentation Documentation: 59-year-old male that presents with SOB and wheezing. HX of asthma without me dicatios. This initial assessment/diagnostic orders/clinical plan/treatment(s) is/are subject to change based on patient's health status, clinical progression and re- assessment by fellow clinical providers in the ED. Further treatment and workup at subsequent clinical providers discretion. Patient/guardians urged not to elope from the ED as their condition may be serious if not clinically assessed and managed. Initial orders include: 1- Patient sent to [facility] for further evaluation and treatment 2- breathing treatment 3- CXR
--- NOTE | 2020-05-17 19:14 | XRay Report ---
CHEST 2 VIEWS INDICATION / CLINICAL INFORMATION: Shortness of breath. COMPARISON: 03/25/2020 FINDINGS: SUPPORT DEVICES: None. HEART / MEDIASTINUM: No significant abnormality. LUNGS / PLEURA: No significant pulmonary or pleural abnormality. No pneumothorax. ADDITIONAL FINDINGS: No significant additional findings. IMPRESSION: 1. No acute findings. Signer Name: Kory Saavedra MD Signed: 05/17/2020 7:10 PM Workstation Name: [id number]
[2020-05-17] MEDS ORDERED: predniSONE 20 MG TAB PO ONE (20:41)
--- NOTE | 2020-05-17 20:57 | Emergency Department Report ---
ED Shortness of Breath HPI - General Chief Complaint: Dyspnea/Respdistress Stated Complaint: ASTHMA/SOB Time Seen by Provider: 05/17/20 18:38 Source: patient Mode of arrival: Ambulatory Limitations: No Limitations - History of Present Illness Initial Comments: 59-year-old male with history of asthma presents to ED with wheezing and shortness of breath since yesterday. Patient states he has run out of his albuterol and Symbicort. Patient denies any fever, cough, loss of smell or taste, vomiting or diarrhea, sick contacts, known exposure to anyone who was tested positive for COVID-19. MD Complaint: "asthma attack" -: days(s) (1) Severity: moderate Consistency: constant Improves With: rest Worsens With: exertion Known History Of: asthma Associated Symptoms: denies other symptoms Treatments Prior to Arrival: none - Related Data Home Oxygen Therapy: No Previous Rx's Medication Instructions Recorded Last Taken Type Acetaminophen [Acetaminophen TAB] 1 tab PO Q4H PRN #15 tablet 10/30/19 Unknown Rx Benzonatate [Tessalon Perles] 100 mg PO Q8H #15 capsule 10/30/19 Unknown Rx Ipratropium/Albuterol Sulfate 1 ampul IH Q6HRT PRN #80 ampul.neb 10/30/19 Unknown Rx [DUONEB *Not for PRN Use*] methylPREDNISolone [Medrol 4MG 1 dose PO QDAY #1 tab.ds.pk 10/30/19 Unknown Rx DOSEPAK (21 tabs)] Azithromycin [Zithromax Z-HANNAH] 250 mg PO DAILY #6 tab 11/20/19 Unknown Rx Codeine Phosphate/Guaifenesin 5 ml PO Q6H PRN #120 ml 11/20/19 Unknown Rx [Guaifenesin-Codeine Syrup] Budesonide [Pulmicort Respules] 0.5 mg IH Q12HRT #30 nebu 03/25/20 Unknown Rx predniSONE [Deltasone] 50 mg PO ONCE #5 tablet 03/25/20 Unknown Rx ALBUTEROL NEB's [Proventil 0.083% 2.5 mg IH TID PRN #30 neb 05/17/20 Unknown Rx NEBS] Albuterol Mdi (or & Nicu Only) 2 puff IH QID PRN #8.5 gram 05/17/20 Unknown Rx [ProAir HFA Inhaler] Budesonide/Formoterol Fumarate 1 gm IH DAILY #1 hfa.aer.ad 05/17/20 Unknown Rx [Symbicort 160-4.5 Mcg Inhaler] predniSONE [Deltasone] 50 mg PO QDAY #5 tab 05/17/20 Unknown Rx Allergies Allergy/AdvReac Type Severity Reaction Status Date / Time ibuprofen [From Motrin] Allergy Unknown Verified 03/25/20 08:21 Penicillins AdvReac Swelling Verified 03/25/20 08:21 ED Review of Systems ROS: Stated complaint: ASTHMA/SOB Other details as noted in HPI Comment: All other systems reviewed and negative Constitutional: denies: chills, fever Respiratory: wheezing. denies: cough Cardiovascular: denies: chest pain Gastrointestinal: denies: vomiting, diarrhea ED Past Medical Hx - Past Medical History Previous Medical History?: Yes Hx Hypertension: No Hx Heart Attack/AMI: No Hx Congestive Heart Failure: No Hx Diabetes: No Hx Deep Vein Thrombosis: No Hx Pulmonary Embolism: No Hx Sickle Cell Disease: No Hx Psychiatric Treatment: (DEPRESSION) Hx Asthma: Yes Hx COPD: No Hx Tuberculosis: No Hx HIV: No - Surgical History Past Surgical History?: Yes Hx Coronary Stent: No Hx Pacemaker: No Hx Internal Defibrillator: No - Social History Smoking Status: Unknown if ever smoked Substance Use Type: None - Medications Home Medications: Home Medications Medication Instructions Recorded Confirmed Last Taken Type Acetaminophen [Acetaminophen TAB] 1 tab PO Q4H PRN #15 tablet 10/30/19 Unknown Rx Benzonatate [Tessalon Perles] 100 mg PO Q8H #15 capsule 10/30/19 Unknown Rx Ipratropium/Albuterol Sulfate 1 ampul IH Q6HRT PRN #80 ampul.neb 10/30/19 Unknown Rx [DUONEB *Not for PRN Use*] methylPREDNISolone [Medrol 4MG 1 dose PO QDAY #1 tab.ds.pk 10/30/19 Unknown Rx DOSEPAK (21 tabs)] Azithromycin [Zithromax Z-HANNAH] 250 mg PO DAILY #6 tab 11/20/19 Unknown Rx Codeine Phosphate/Guaifenesin 5 ml PO Q6H PRN #120 ml 11/20/19 Unknown Rx [Guaifenesin-Codeine Syrup] Budesonide [Pulmicort Respules] 0.5 mg IH Q12HRT #30 nebu 03/25/20 Unknown Rx predniSONE [Deltasone] 50 mg PO ONCE #5 tablet 03/25/20 Unknown Rx ALBUTEROL NEB's [Proventil 0.083% 2.5 mg IH TID PRN #30 neb 05/17/20 Unknown Rx NEBS] Albuterol Mdi (or & Nicu Only) 2 puff IH QID PRN #8.5 gram 05/17/20 Unknown Rx [ProAir HFA Inhaler] Budesonide/Formoterol Fumarate 1 gm IH DAILY #1 hfa.aer.ad 05/17/20 Unknown Rx [Symbicort 160-4.5 Mcg Inhaler] predniSONE [Deltasone] 50 mg PO QDAY #5 tab 05/17/20 Unknown Rx ED Physical Exam - General Limitations: No Limitations General appearance: alert, in no apparent distress - Head Head exam: Present: atraumatic, normocephalic - Eye Eye exam: Present: normal appearance, EOMI - ENT ENT exam: Present: mucous membranes moist - Neck Neck exam: Present: normal inspection - Respiratory Respiratory exam: Present: wheezes (Slight). Absent: respiratory distress - Cardiovascular Cardiovascular Exam: Present: regular rate, normal rhythm - GI/Abdominal GI/Abdominal exam: Present: soft. Absent: distended, tenderness - Extremities Exam Extremities exam: Present: normal inspection - Neurological Exam Neurological exam: Present: alert, oriented X3 - Psychiatric Psychiatric exam: Present: normal affect, normal mood - Skin Skin exam: Present: warm, dry, intact, normal color ED Course Vital Signs 05/17/20 05/17/20 17:26 20:59 Temperature 98.3 F Pulse Rate 95 H Pulse Rate [ 88 Bilateral Throughout] Respiratory 17 Rate Respiratory 18 Rate [Bilateral Throughout] Blood Pressure 108/75 O2 Sat by Pulse 96 Oximetry ED Medical Decision Making - Radiology Data Radiology results: report reviewed, image reviewed - Medical Decision Making Patient feeling much better following breathing treatment. Chest x-ray is negative. Will discharge home at this time with prescriptions. Outpatient follow-up advised. Return precautions given. - Differential Diagnosis Asthma, pneumonia Critical care attestation.: If time is entered above; I have spent that time in minutes in the direct care of this critically ill patient, excluding procedure time. ED Disposition Clinical Impression: Acute asthma exacerbation Disposition: DC-01 TO HOME OR SELFCARE Is pt being admited?: No Condition: Stable Instructions: Asthma (ED) Prescriptions: predniSONE [Deltasone] 50 mg PO QDAY #5 tab Albuterol Mdi (or & Nicu Only) [ProAir HFA Inhaler] 2 puff IH QID PRN #8.5 gram PRN Reason: Shortness Of Breath ALBUTEROL NEB's [Proventil 0.083% NEBS] 2.5 mg IH TID PRN #30 neb PRN Reason: Wheezing Budesonide/Formoterol Fumarate [Symbicort 160-4.5 Mcg Inhaler] 1 gm IH DAILY #1 hfa.aer.ad Referrals: PRIMARY CAREMD [Primary Care Provider] - 3-5 Days [facility] [Provider Group] - 3-5 Days WEN MEDINA MD [Staff Physician] - 3-5 Days MIREILLE ZEPEDA DO [Staff Physician] - 3-5 Days Time of Disposition: 22:10
[2020-05-18 07:29] VITALS: BP 112/62
== END 2020-05-17 22:28 | disposition home or self-care (01) ==
LOC: ED 17:11
DX: J45.901 Unspecified asthma with (acute) exacerbation (principal); F32.9 Major depressive disorder, single episode, unspecified; Z98.890 Other specified postprocedural states; Z79.1 Long term (current) use of non-steroidal anti-inflammatories (NSAID); Z79.899 Other long term (current) drug therapy; Z88.0 Allergy status to penicillin; Z88.8 Allergy status to other drugs, medicaments and biological substances
CPT/HCPCS: 71046; 94644; 99283; J7512

== ENCOUNTER 2020-08-13 13:02 | Emergency (ER) | payer MEDICARE ==
--- NOTE | 2020-08-13 13:56 | XRay Report ---
CHEST 2 VIEWS INDICATION / CLINICAL INFORMATION: Shortness of breath. History of asthma. COMPARISON: 05/17/20. FINDINGS: SUPPORT DEVICES: None. HEART / MEDIASTINUM: The heart size and pulmonary vasculature are normal. LUNGS / PLEURA: No significant pulmonary or pleural abnormality. No pneumothorax. ADDITIONAL FINDINGS: No significant additional findings. IMPRESSION: No acute abnormality or significant change. Signer Name: Myles Huizar MD Signed: 08/13/2020 1:51 PM Workstation Name: [id number]
[2020-08-13] MEDS ORDERED: ALBUTEROL 2.5 MG/3 ML NEBU IH ONE (14:10)
[2020-08-13] MEDS ORDERED: dexAMETHasone 20 MG/5 ML VIAL IM ONE (14:10)
[2020-08-13] MEDS ORDERED: IPRATROPIUM 0.02% NEBU 2.5 ML IH ONE (14:10)
--- NOTE | 2020-08-13 14:59 | Emergency Department Report ---
Minor Respiratory - HPI Chief Complaint: Upper Respiratory Infection Stated Complaint: ASTHMA/MADDI Time Seen by Provider: 08/13/20 14:06 Duration: 2 Days Severity: moderate Minor Respiratory: Yes Able to Tolerate Fluids, Yes Cough, Yes Shortness of Breath, No Rhinorrhea, No Sore Throat, No Ear Pain, No Sick Contacts, No Hemoptysis, No Chest Pain, No Fever Other History: The patient was evaluated in the emergency department for symptoms described in the history of present illness. He/she was evaluated in the context of the global COVID-19 pandemic, which necessitated consideration that the patient might be at risk for infection with the virus that causes COVID-19. Institutional protocols and algorithms that pertain to the evaluation of patients at risk for COVID-19 are in a state of rapid change based on information released by regulatory bodies including the CDC and federal and state organizations. These policies and algorithms were followed during the hilaria christopher's care in the emergency department. Please note that these policies, procedures and recommendations changed on a rapid basis. 59-year-old - [place] male presents to the emergency room for 2-day history of wheezing and coughing. Patient states his been using his inhaler and nebulizer but not able to get his breathing at baseline. Patient states his last treatment was last night. Patient denies any headache no chills no body aches no nausea no vomiting no fever or chills. Patient admits to a history of asthma. ED Review of Systems ROS: Stated complaint: ASTHMA/MADDI Other details as noted in HPI ED Past Medical Hx - Past Medical History Previous Medical History?: Yes Hx Hypertension: No Hx Heart Attack/AMI: No Hx Congestive Heart Failure: No Hx Diabetes: No Hx Deep Vein Thrombosis: No Hx Pulmonary Embolism: No Hx Sickle Cell Disease: No Hx Psychiatric Treatment: (DEPRESSION) Hx Asthma: Yes Hx COPD: No Hx Tuberculosis: No Hx HIV: No - Surgical History Past Surgical History?: No Hx Coronary Stent: No Hx Pacemaker: No Hx Internal Defibrillator: No - Social History Smoking Status: Unknown if ever smoked Substance Use Type: None - Medications Home Medications: Home Medications Medication Instructions Recorded Confirmed Last Taken Type Acetaminophen [Acetaminophen TAB] 1 tab PO Q4H PRN #15 tablet 10/30/19 Unknown Rx Benzonatate [Tessalon Perles] 100 mg PO Q8H #15 capsule 10/30/19 Unknown Rx Ipratropium/Albuterol Sulfate 1 ampul IH Q6HRT PRN #80 ampul.neb 10/30/19 Unknown Rx [DUONEB *Not for PRN Use*] methylPREDNISolone [Medrol 4MG 1 dose PO QDAY #1 tab.ds.pk 10/30/19 Unknown Rx DOSEPAK (21 tabs)] Azithromycin [Zithromax Z-HANNAH] 250 mg PO DAILY #6 tab 11/20/19 Unknown Rx Codeine Phosphate/Guaifenesin 5 ml PO Q6H PRN #120 ml 11/20/19 Unknown Rx [Guaifenesin-Codeine Syrup] Budesonide [Pulmicort Respules] 0.5 mg IH Q12HRT #30 nebu 03/25/20 Unknown Rx predniSONE [Deltasone] 50 mg PO ONCE #5 tablet 03/25/20 Unknown Rx ALBUTEROL NEB's [Proventil 0.083% 2.5 mg IH TID PRN #30 neb 05/17/20 Unknown Rx NEBS] Budesonide/Formoterol Fumarate 1 gm IH DAILY #1 hfa.aer.ad 05/17/20 Unknown Rx [Symbicort 160-4.5 Mcg Inhaler] predniSONE [Deltasone] 50 mg PO QDAY #5 tab 05/17/20 Unknown Rx Benzonatate [Tessalon Perles] 100 mg PO Q8HR PRN #15 capsule 08/13/20 Unknown Rx Budesonide/Formoterol Fumarate 2 puff IH BID #1 hfa.aer.ad 08/13/20 Unknown Rx [Symbicort 160-4.5 Mcg Inhaler] predniSONE [Deltasone] 50 mg PO QDAY #5 tab 08/13/20 Unknown Rx Minor Respiratory Exam - Exam General: Vital signs noted. No distress. Alert and acting appropriately. Neurologic: Alert and oriented, no deficits. Musculoskeletal: Unremarkable. ED Course Vital Signs 08/13/20 13:06 Temperature 97.9 F Pulse Rate 96 H Respiratory 16 Rate Blood Pressure 150/85 O2 Sat by Pulse 96 Oximetry ED Medical Decision Making - Medical Decision Making 59-year-old -[place] male presents to the emergency room for 2-day history of wheezing and coughing. Patient states his been using his inhaler and nebulizer but not able to get his breathing at baseline. Patient states his last treatment was last night. Patient denies any headache no chills no body aches no nausea no vomiting no fever or chills. Patient admits to a history of asthma. Noticed on physical examination that patient has some inspiratory as well as expiratory wheezing and rhonchus. This provider initiated dexamethasone 10 mg IM and DuoNeb of albuterol 5 mg and Atrovent 0.5. Patient will be discharged home on steroid trial as well as to increase his fluids and to use his nebulizer as needed. Discussed with patient to follow-up with his primary care provider which is Wen Brannon Critical care attestation.: If time is entered above; I have spent that time in minutes in the direct care of this critically ill patient, excluding procedure time. ED Disposition Clinical Impression: Asthma Disposition: DC-01 TO HOME OR SELFCARE Is pt being admited?: No Does the pt Need Aspirin: No Condition: Stable Instructions: Asthma (ED) Additional Instructions: Complete prednisone as prescribed use inhalers as needed and take Tessalon Perles as needed for cough. Follow-up with your primary care provider for any further concerns. Prescriptions: predniSONE [Deltasone] 50 mg PO QDAY #5 tab Budesonide/Formoterol Fumarate [Symbicort 160-4.5 Mcg Inhaler] 2 puff IH BID #1 hfa.aer.ad Benzonatate [Tessalon Perles] 100 mg PO Q8HR PRN #15 capsule PRN Reason: Cough Referrals: PAT NAZARIO MD [Primary Care Provider] - 3-5 Days Forms: Work/School Release Form(ED)
[2020-08-13 17:36] VITALS: BP 129/83
== END 2020-08-13 17:05 | disposition home or self-care (01) ==
LOC: ED 13:02
DX: J45.909 Unspecified asthma, uncomplicated (principal); F32.9 Major depressive disorder, single episode, unspecified; Z79.2 Long term (current) use of antibiotics; Z79.899 Other long term (current) drug therapy; Z88.0 Allergy status to penicillin; Z88.8 Allergy status to other drugs, medicaments and biological substances
CPT/HCPCS: 71046; 94640; 96372; 99283; J1100; 94644

== ENCOUNTER 2020-12-06 11:47 | Emergency (ER) | payer MEDICARE ==
[2020-12-06] MEDS ORDERED: ALBUTEROL 2.5 MG/3 ML NEBU IH ONE (12:07)
[2020-12-06] MEDS ORDERED: IPRATROPIUM 0.02% NEBU 2.5 ML IH ONE (12:07)
[2020-12-06] MEDS ORDERED: dexAMETHasone 20 MG/5 ML VIAL IV ONE (12:07)
--- NOTE | 2020-12-06 12:12 | Emergency Department Report ---
ED Asthma HPI - General Chief Complaint: Dyspnea/Respdistress Stated Complaint: ASTHMA MADDI Time Seen by Provider: 12/06/20 12:06 Source: patient Mode of arrival: Ambulatory Limitations: No Limitations - History of Present Illness Initial Comments: pt is a 60 yo male who presents to the ED with c/o an asthma exacerbation that began this morning at 4 AM. he has associated wheezing, SOB, and mild dry cough. he denies any productive cough, fever, CP, N/V/D. he states he used his very last nebulizer treatment. he states he has been out of his albuterol and symbicort inhalers for a month. he denies any known sick contacts or recent travel. allergy: ibuprofen and penicillin. - Related Data Previous Rx's Medication Instructions Recorded Last Taken Type Acetaminophen [Acetaminophen TAB] 1 tab PO Q4H PRN #15 tablet 10/30/19 Unknown Rx Benzonatate [Tessalon Perles] 100 mg PO Q8H #15 capsule 10/30/19 Unknown Rx Ipratropium/Albuterol Sulfate 1 ampul IH Q6HRT PRN #80 ampul.neb 10/30/19 Unknown Rx [DUONEB *Not for PRN Use*] methylPREDNISolone [Medrol 4MG 1 dose PO QDAY #1 tab.ds.pk 10/30/19 Unknown Rx DOSEPAK (21 tabs)] Azithromycin [Zithromax Z-HANNAH] 250 mg PO DAILY #6 tab 11/20/19 Unknown Rx Codeine Phosphate/Guaifenesin 5 ml PO Q6H PRN #120 ml 11/20/19 Unknown Rx [Guaifenesin-Codeine Syrup] Budesonide [Pulmicort Respules] 0.5 mg IH Q12HRT #30 nebu 03/25/20 Unknown Rx predniSONE [Deltasone] 50 mg PO ONCE #5 tablet 03/25/20 Unknown Rx ALBUTEROL NEB's [Proventil 0.083% 2.5 mg IH TID PRN #30 neb 05/17/20 Unknown Rx NEBS] Budesonide/Formoterol Fumarate 1 gm IH DAILY #1 hfa.aer.ad 05/17/20 Unknown Rx [Symbicort 160-4.5 Mcg Inhaler] predniSONE [Deltasone] 50 mg PO QDAY #5 tab 05/17/20 Unknown Rx Benzonatate [Tessalon Perles] 100 mg PO Q8HR PRN #15 capsule 08/13/20 Unknown Rx predniSONE [Deltasone] 50 mg PO QDAY #5 tab 08/13/20 Unknown Rx ALBUTEROL NEB's [Proventil 0.083% 2.5 mg IH TID PRN #1 box 12/06/20 Unknown Rx NEBS] Albuterol Sulfate [Proventil Hfa] 6.7 gm IH TID PRN #1 hfa.aer.ad 12/06/20 Unknown Rx Budesonide/Formoterol Fumarate 2 puff IH BID #1 hfa.aer.ad 12/06/20 Unknown Rx [Symbicort 160-4.5 Mcg Inhaler] predniSONE [Deltasone] 40 mg PO QDAY 5 Days #10 tab 12/06/20 Unknown Rx Allergies Allergy/AdvReac Type Severity Reaction Status Date / Time ibuprofen [From Motrin] Allergy Unknown Verified 03/25/20 08:21 Penicillins AdvReac Swelling Verified 03/25/20 08:21 ED Review of Systems ROS: Stated complaint: ASTHMA MADDI Other details as noted in HPI Comment: All other systems reviewed and negative ED Past Medical Hx - Past Medical History Previous Medical History?: Yes Hx Hypertension: No Hx Heart Attack/AMI: No Hx Congestive Heart Failure: No Hx Diabetes: No Hx Deep Vein Thrombosis: No Hx Pulmonary Embolism: No Hx Sickle Cell Disease: No Hx Psychiatric Treatment: Yes (DEPRESSION) Hx Asthma: Yes Hx COPD: No Hx Tuberculosis: No Hx HIV: No - Surgical History Past Surgical History?: No Hx Coronary Stent: No Hx Pacemaker: No Hx Internal Defibrillator: No - Social History Smoking Status: Never Smoker Substance Use Type: None - Medications Home Medications: Home Medications Medication Instructions Recorded Confirmed Last Taken Type Acetaminophen [Acetaminophen TAB] 1 tab PO Q4H PRN #15 tablet 10/30/19 Unknown Rx Benzonatate [Tessalon Perles] 100 mg PO Q8H #15 capsule 10/30/19 Unknown Rx Ipratropium/Albuterol Sulfate 1 ampul IH Q6HRT PRN #80 ampul.neb 10/30/19 Unknown Rx [DUONEB *Not for PRN Use*] methylPREDNISolone [Medrol 4MG 1 dose PO QDAY #1 tab.ds.pk 10/30/19 Unknown Rx DOSEPAK (21 tabs)] Azithromycin [Zithromax Z-HANNAH] 250 mg PO DAILY #6 tab 11/20/19 Unknown Rx Codeine Phosphate/Guaifenesin 5 ml PO Q6H PRN #120 ml 11/20/19 Unknown Rx [Guaifenesin-Codeine Syrup] Budesonide [Pulmicort Respules] 0.5 mg IH Q12HRT #30 nebu 03/25/20 Unknown Rx predniSONE [Deltasone] 50 mg PO ONCE #5 tablet 03/25/20 Unknown Rx ALBUTEROL NEB's [Proventil 0.083% 2.5 mg IH TID PRN #30 neb 05/17/20 Unknown Rx NEBS] Budesonide/Formoterol Fumarate 1 gm IH DAILY #1 hfa.aer.ad 05/17/20 Unknown Rx [Symbicort 160-4.5 Mcg Inhaler] predniSONE [Deltasone] 50 mg PO QDAY #5 tab 05/17/20 Unknown Rx Benzonatate [Tessalon Perles] 100 mg PO Q8HR PRN #15 capsule 08/13/20 Unknown Rx predniSONE [Deltasone] 50 mg PO QDAY #5 tab 08/13/20 Unknown Rx ALBUTEROL NEB's [Proventil 0.083% 2.5 mg IH TID PRN #1 box 12/06/20 Unknown Rx NEBS] Albuterol Sulfate [Proventil Hfa] 6.7 gm IH TID PRN #1 hfa.aer.ad 12/06/20 Unknown Rx Budesonide/Formoterol Fumarate 2 puff IH BID #1 hfa.aer.ad 12/06/20 Unknown Rx [Symbicort 160-4.5 Mcg Inhaler] predniSONE [Deltasone] 40 mg PO QDAY 5 Days #10 tab 12/06/20 Unknown Rx ED Physical Exam - General Limitations: No Limitations General appearance: alert, in no apparent distress - Head Head exam: Present: atraumatic, normocephalic - Eye Eye exam: Present: normal appearance - ENT ENT exam: Present: mucous membranes moist - Respiratory Respiratory exam: Present: wheezes (expiratory and inspiratory), decreased breath sounds, prolonged expiratory. Absent: respiratory distress, rales, rhonchi, stridor, chest wall tenderness, accessory muscle use - Cardiovascular Cardiovascular Exam: Present: normal rhythm, tachycardia, normal heart sounds. Absent: systolic murmur, diastolic murmur, rubs, gallop - Neurological Exam Neurological exam: Present: alert, oriented X3 - Psychiatric Psychiatric exam: Present: normal affect, normal mood - Skin Skin exam: Present: warm, dry, intact ED Course Vital Signs 12/06/20 12/06/20 12/06/20 12:04 12:18 12:41 Temperature 98.2 F Pulse Rate 107 H 106 H 94 H Pulse Rate [ Anterior Bilateral Throughout] Respiratory 22 24 Rate Respiratory Rate [Anterior Bilateral Throughout] Blood Pressure 138/85 Blood Pressure 137/98 139/93 [Left] O2 Sat by Pulse 96 94 99 Oximetry 12/06/20 12/06/20 12/06/20 12:55 13:10 13:41 Temperature Pulse Rate 94 H 89 Pulse Rate [ 118 H Anterior Bilateral Throughout] Respiratory 18 18 Rate Respiratory 19 Rate [Anterior Bilateral Throughout] Blood Pressure Blood Pressure 128/89 128/79 [Left] O2 Sat by Pulse 97 98 Oximetry 12/06/20 14:59 Temperature Pulse Rate 101 H Pulse Rate [ Anterior Bilateral Throughout] Respiratory 18 Rate Respiratory Rate [Anterior Bilateral Throughout] Blood Pressure Blood Pressure 140/73 [Left] O2 Sat by Pulse 94 Oximetry ED Medical Decision Making - Lab Data Vital Signs 12/06/20 12/06/20 12/06/20 12:04 12:18 12:41 Temperature 98.2 F Pulse Rate 107 H 106 H 94 H Pulse Rate [ Anterior Bilateral Throughout] Respiratory 22 24 Rate Respiratory Rate [Anterior Bilateral Throughout] Blood Pressure 138/85 Blood Pressure 137/98 139/93 [Left] O2 Sat by Pulse 96 94 99 Oximetry 12/06/20 12/06/20 12/06/20 12:55 13:10 13:41 Temperature Pulse Rate 94 H 89 Pulse Rate [ 118 H Anterior Bilateral Throughout] Respiratory 18 18 Rate Respiratory 19 Rate [Anterior Bilateral Throughout] Blood Pressure Blood Pressure 128/89 128/79 [Left] O2 Sat by Pulse 97 98 Oximetry 12/06/20 14:59 Temperature Pulse Rate 101 H Pulse Rate [ Anterior Bilateral Throughout] Respiratory 18 Rate Respiratory Rate [Anterior Bilateral Throughout] Blood Pressure Blood Pressure 140/73 [Left] O2 Sat by Pulse 94 Oximetry - Radiology Data Radiology results: report reviewed Chest x-ray no acute findings - Medical Decision Making pt is a 60 yo male who presents to the ED with c/o an asthma exacerbation that began this morning at 4 AM. he has associated wheezing, SOB, and mild dry cough. he denies any productive cough, fever, CP, N/V/D. he states he used his very last nebulizer treatment. he states he has been out of his albuterol and symbicort inhalers for a month. he denies any known sick contacts or recent travel. allergy: ibuprofen and penicillin. Initial vitals with mild tachycardia which improved upon repeat. On exam patient has expiratory and inspiratory wheezing bilaterally and decreased expiratory phase consistent with asthma exacerbation. Chest x-ray no acute findings. Patient given continuous neb treatment and steroids. On repeat wheezing has improved and patient is feeling much better and ready to go home. Patient ambulated while the emergency department and maintained oxygen saturation of 94% or greater on room air. Patient given refill of his home medications and placed on prednisone. Advised patient please take medication as prescribed. follow up with a primary care doctor. return to the emergency room immediately for any new or worsening symptoms. Critical care attestation.: If time is entered above; I have spent that time in minutes in the direct care of this critically ill patient, excluding procedure time. ED Disposition Clinical Impression: Asthma exacerbation Qualifiers: Asthma severity: unspecified severity Asthma persistence: unspecified Qualified Code(s): J45.901 - Unspecified asthma with (acute) exacerbation Disposition: DC-01 TO HOME OR SELFCARE Is pt being admited?: No Does the pt Need Aspirin: No Condition: Stable Instructions: Asthma, Adult Additional Instructions: please take medication as prescribed. follow up with a primary care doctor. return to the emergency room immediately for any new or worsening symptoms. Prescriptions: predniSONE [Deltasone] 40 mg PO QDAY 5 Days #10 tab ALBUTEROL NEB's [Proventil 0.083% NEBS] 2.5 mg IH TID PRN #1 box PRN Reason: Wheezing Albuterol Sulfate [Proventil Hfa] 6.7 gm IH TID PRN #1 hfa.aer.ad PRN Reason: shortness of breath/wheezing Budesonide/Formoterol Fumarate [Symbicort 160-4.5 Mcg Inhaler] 2 puff IH BID #1 hfa.aer.ad Referrals: PRIMARY CARE, [Primary Care Provider] - 2-3 Days CARBUCCIA,WEN, MD [Staff Physician] - 2-3 Days [facility] [Provider Group] - 2-3 Days Forms: Work/School Release Form(ED) Time of Disposition: 14:25 Print Language: KOSOVAN
--- NOTE | 2020-12-06 12:40 | XRay Report ---
CHEST 1 VIEW 12/06/2020 11:32 AM INDICATION / CLINICAL INFORMATION: SOB, wheezing. COMPARISON: 08/13/2020 FINDINGS: SUPPORT DEVICES: None. HEART / MEDIASTINUM: No significant abnormality. LUNGS / PLEURA: No significant pulmonary or pleural abnormality. No pneumothorax. ADDITIONAL FINDINGS: No significant additional findings. IMPRESSION: 1. No acute findings. Signer Name: Luis F Dc MD Signed: 12/06/2020 12:36 PM Workstation Name: [id number]
[2020-12-06 15:00] VITALS: BP 140/73
== END 2020-12-06 14:59 | disposition home or self-care (01) ==
LOC: ED 11:47
DX: J45.901 Unspecified asthma with (acute) exacerbation (principal); F32.9 Major depressive disorder, single episode, unspecified; Z79.2 Long term (current) use of antibiotics; Z79.899 Other long term (current) drug therapy; Z88.0 Allergy status to penicillin; Z88.8 Allergy status to other drugs, medicaments and biological substances
CPT/HCPCS: 71045; 94640; 96374; 99283; J1100; 94644

== ENCOUNTER 2021-01-05 13:13 | Emergency (ER) | payer MEDICARE ==
[2021-01-05 13:22] VITALS: BP 157/99
[2021-01-05] MEDS ORDERED: IPRATROPIUM 0.02% NEBU 2.5 ML IH ONE (13:25)
[2021-01-05] MEDS ORDERED: ALBUTEROL 2.5 MG/3 ML NEBU IH ONE (13:25)
[2021-01-05] MEDS ORDERED: methylPREDNISolone Sod Succinate 125 MG/2 ML INJ IM ONE (13:25)
--- NOTE | 2021-01-05 13:28 | Event Note ---
ED Screening Note Date of service: 01/05/21 Time: 13:26 ED Screening Note: Pt c/o asthma exacerbation x 2 hours on symbicort at home, but out of meds x1 month O2 88% on room air diffuse wheezing and decreased breath sounds on exam This initial assessment/diagnostic orders/clinical plan/treatment(s) is/are subject to change based on patients health status, clinical progression and re- assessment by fellow clinical providers in the ED. Further treatment and workup at subsequent clinical providers discretion. Patient/guardian urged not to elope from the ED as their condition may be serious if not clinically assessed and managed. Initial orders include: charge nurse notified continuous neb meds
--- NOTE | 2021-01-05 14:53 | Emergency Department Report ---
ED General Adult HPI - General Chief complaint: Adult Asthma Stated complaint: ASTHMA Time Seen by Provider: 01/05/21 13:24 Source: patient Mode of arrival: Ambulatory Limitations: No Limitations - History of Present Illness Initial comments: 60-year-old -Thai male patient presents with complaints of asthma exacerbation today. He states he has a great deal of wheezing and shortness of breath. He denies chest pain and states this feels like his normal asthma exacerbation. Patient reports he has been out of his Symbicort, albuterol inhal er, and albuterol nebulizer solution for 1 month. He is not currently following with a primary care provider. Patient also denies any fever/chills/sweats, cough, or swelling/pain in his extremities. - Related Data Previous Rx's Medication Instructions Recorded Last Taken Type Acetaminophen [Acetaminophen TAB] 1 tab PO Q4H PRN #15 tablet 10/30/19 Unknown Rx Benzonatate [Tessalon Perles] 100 mg PO Q8H #15 capsule 10/30/19 Unknown Rx Ipratropium/Albuterol Sulfate 1 ampul IH Q6HRT PRN #80 ampul.neb 10/30/19 Unknown Rx [DUONEB *Not for PRN Use*] Azithromycin [Zithromax Z-HANNAH] 250 mg PO DAILY #6 tab 11/20/19 Unknown Rx Codeine Phosphate/Guaifenesin 5 ml PO Q6H PRN #120 ml 11/20/19 Unknown Rx [Guaifenesin-Codeine Syrup] Budesonide [Pulmicort Respules] 0.5 mg IH Q12HRT #30 nebu 03/25/20 Unknown Rx predniSONE [Deltasone] 50 mg PO ONCE #5 tablet 03/25/20 Unknown Rx ALBUTEROL NEB's [Proventil 0.083% 2.5 mg IH TID PRN #30 neb 05/17/20 Unknown Rx NEBS] Budesonide/Formoterol Fumarate 1 gm IH DAILY #1 hfa.aer.ad 05/17/20 Unknown Rx [Symbicort 160-4.5 Mcg Inhaler] predniSONE [Deltasone] 50 mg PO QDAY #5 tab 05/17/20 Unknown Rx Benzonatate [Tessalon Perles] 100 mg PO Q8HR PRN #15 capsule 10/16/20 Unknown Rx predniSONE [Deltasone] 50 mg PO QDAY #5 tab 08/13/20 Unknown Rx predniSONE [Deltasone] 40 mg PO QDAY 5 Days #10 tab 12/06/20 Unknown Rx ALBUTEROL NEB's [Proventil 0.083% 2.5 mg IH TID PRN #1 box 01/05/21 Unknown Rx NEBS] Albuterol Sulfate [Proventil Hfa] 6.7 gm IH TID PRN #1 hfa.aer.ad 01/05/21 Unknown Rx Budesonide/Formoterol Fumarate 2 puff IH BID #1 hfa.aer.ad 01/05/21 Unknown Rx [Symbicort 160-4.5 Mcg Inhaler] methylPREDNISolone [Medrol 4MG 1 dose PO QDAY #1 tab.ds.pk 01/05/21 Unknown Rx DOSEPAK (21 tabs)] Allergies Allergy/AdvReac Type Severity Reaction Status Date / Time ibuprofen [From Motrin] Allergy Unknown Verified 01/05/21 13:19 Penicillins AdvReac Swelling Verified 01/05/21 13:19 ED Review of Systems ROS: Stated complaint: ASTHMA Other details as noted in HPI Constitutional: denies: chills, diaphoresis, fever, malaise, weakness Respiratory: shortness of breath, wheezing. denies: cough Cardiovascular: denies: chest pain, edema, syncope Gastrointestinal: denies: abdominal pain Skin: denies: change in color ED Past Medical Hx - Past Medical History Hx Hypertension: No Hx Heart Attack/AMI: No Hx Congestive Heart Failure: No Hx Diabetes: No Hx Deep Vein Thrombosis: No Hx Pulmonary Embolism: No Hx Sickle Cell Disease: No Hx Psychiatric Treatment: Yes (DEPRESSION) Hx Asthma: Yes Hx COPD: No Hx Tuberculosis: No Hx HIV: No - Surgical History Hx Coronary Stent: No Hx Pacemaker: No Hx Internal Defibrillator: No - Social History Smoking Status: Never Smoker Substance Use Type: None - Medications Home Medications: Home Medications Medication Instructions Recorded Confirmed Last Taken Type Acetaminophen [Acetaminophen TAB] 1 tab PO Q4H PRN #15 tablet 10/30/19 Unknown Rx Benzonatate [Tessalon Perles] 100 mg PO Q8H #15 capsule 10/30/19 Unknown Rx Ipratropium/Albuterol Sulfate 1 ampul IH Q6HRT PRN #80 ampul.neb 10/30/19 Unknown Rx [DUONEB *Not for PRN Use*] Azithromycin [Zithromax Z-HANNAH] 250 mg PO DAILY #6 tab 11/20/19 Unknown Rx Codeine Phosphate/Guaifenesin 5 ml PO Q6H PRN #120 ml 11/20/19 Unknown Rx [Guaifenesin-Codeine Syrup] Budesonide [Pulmicort Respules] 0.5 mg IH Q12HRT #30 nebu 03/25/20 Unknown Rx predniSONE [Deltasone] 50 mg PO ONCE #5 tablet 03/25/20 Unknown Rx ALBUTEROL NEB's [Proventil 0.083% 2.5 mg IH TID PRN #30 neb 05/17/20 Unknown Rx NEBS] Budesonide/Formoterol Fumarate 1 gm IH DAILY #1 hfa.aer.ad 05/17/20 Unknown Rx [Symbicort 160-4.5 Mcg Inhaler] predniSONE [Deltasone] 50 mg PO QDAY #5 tab 05/17/20 Unknown Rx Benzonatate [Tessalon Perles] 100 mg PO Q8HR PRN #15 capsule 08/13/20 Unknown Rx predniSONE [Deltasone] 50 mg PO QDAY #5 tab 08/13/20 Unknown Rx predniSONE [Deltasone] 40 mg PO QDAY 5 Days #10 tab 12/06/20 Unknown Rx ALBUTEROL NEB's [Proventil 0.083% 2.5 mg IH TID PRN #1 box 01/05/21 Unknown Rx NEBS] Albuterol Sulfate [Proventil Hfa] 6.7 gm IH TID PRN #1 hfa.aer.ad 01/05/21 U nknown Rx Budesonide/Formoterol Fumarate 2 puff IH BID #1 hfa.aer.ad 01/05/21 Unknown Rx [Symbicort 160-4.5 Mcg Inhaler] methylPREDNISolone [Medrol 4MG 1 dose PO QDAY #1 tab.ds.pk 01/05/21 Unknown Rx DOSEPAK (21 tabs)] ED Physical Exam - General Limitations: No Limitations General appearance: alert, other (Mild tachypnea noted) - Head Head exam: Present: atraumatic, normocephalic - Eye Eye exam: Present: normal appearance - Neck Neck exam: Present: normal inspection - Respiratory Respiratory exam: Present: wheezes (Diffuse), decreased breath sounds (Diffuse). Absent: rales, rhonchi - Cardiovascular Cardiovascular Exam: Present: regular rate, normal rhythm - GI/Abdominal GI/Abdominal exam: Present: soft. Absent: tenderness - Extremities Exam Extremities exam: Absent: calf tenderness (No swelling noted to extremities) - Neurological Exam Neurological exam: Present: alert, oriented X3, normal gait - Psychiatric Psychiatric exam: Present: normal affect, normal mood - Skin Skin exam: Present: warm, dry, intact, normal color. Absent: rash, cyanosis, diaphoretic ED Course Vital Signs 01/05/21 01/05/21 13:20 13:42 Temperature 97.6 F Pulse Rate 105 H Pulse Rate [ 93 H Anterior Bilateral Throughout] Respiratory 28 H Rate Respiratory 20 Rate [Anterior Bilateral Throughout] Blood Pressure 157/99 O2 Sat by Pulse 95 Oximetry ED Medical Decision Making - Medical Decision Making Patient given hour-long DuoNeb treatment along with Solu-Medrol. Patient eloped prior to reevaluation and prescriptions Critical care attestation.: If time is entered above; I have spent that time in minutes in the direct care of this critically ill patient, excluding procedure time. ED Disposition Clinical Impression: Asthma exacerbation Qualifiers: Asthma severity: moderate Asthma persistence: persistent Qualified Code(s): J45.41 - Moderate persistent asthma with (acute) exacerbation Disposition: ELOPED Is pt being admited?: No Condition: Stable Instructions: Asthma, Adult Prescriptions: methylPREDNISolone [Medrol 4MG DOSEPAK (21 tabs)] 1 dose PO QDAY #1 tab.ds.pk ALBUTEROL NEB's [Proventil 0.083% NEBS] 2.5 mg IH TID PRN #1 box PRN Reason: Wheezing Albuterol Sulfate [Proventil Hfa] 6.7 gm IH TID PRN #1 hfa.aer.ad PRN Reason: shortness of breath/wheezing Budesonide/Formoterol Fumarate [Symbicort 160-4.5 Mcg Inhaler] 2 puff IH BID #1 hfa.aer.ad Referrals: [facility] [Provider Group] - 3-5 Days
== END 2021-01-05 17:16 | disposition left against medical advice (07) ==
LOC: ED 13:13
DX: J45.901 Unspecified asthma with (acute) exacerbation (principal); F32.9 Major depressive disorder, single episode, unspecified; Z79.899 Other long term (current) drug therapy; Z88.0 Allergy status to penicillin; Z88.8 Allergy status to other drugs, medicaments and biological substances
CPT/HCPCS: 94644; 96372; 99282; J2930

== ENCOUNTER 2021-01-17 13:39 | Emergency (ER) | payer MEDICARE ==
[2021-01-17] MEDS ORDERED: MAGNESIUM SULFATE 2 GM/50 ML BAG IV ONE (14:23)
[2021-01-17] MEDS ORDERED: IPRATROPIUM 0.02% NEBU 2.5 ML IH ONE (14:23)
[2021-01-17] MEDS ORDERED: SODIUM CHLORIDE 0.9% 1000 ML 1,000 ML IV ONE (14:23)
[2021-01-17] MEDS ORDERED: ALBUTEROL 2.5 MG/3 ML NEBU IH ONE ×2 (14:23)
[2021-01-17] MEDS ORDERED: methylPREDNISolone Sod Succinate 125 MG/2 ML INJ IV ONE (14:23)
--- NOTE | 2021-01-17 14:27 | Event Note ---
ED Screening Note Date of service: 01/17/21 Time: 14:21 ED Screening Note: 60-year-old -Maltese male with a history of asthma presents to the emergency room for 2-day history of shortness of breath coughing up the yellowish phlegm. Difficulty in breathing. Has been given himself nebulizer treatments with no relief. History of hospitalization for asthma never been intubated. This initial assessment/diagnostic orders/clinical plan/treatment(s) is/are subject to change based on patients health status, clinical progression and re- assessment by fellow clinical providers in the ED. Further treatment and workup at subsequent clinical providers discretion. Patient/guardian urged not to elope from the ED as their condition may be serious if not clinically assessed and managed. Initial orders include:
--- NOTE | 2021-01-17 14:49 | XRay Report ---
CHEST 2 VIEWS INDICATION / CLINICAL INFORMATION: Cough and shortness of breath. COMPARISON: 12/06/2020. FINDINGS: SUPPORT DEVICES: None. HEART / MEDIASTINUM: The heart size and pulmonary vasculature are normal. LUNGS / PLEURA: No significant pulmonary or pleural abnormality. No pneumothorax. ADDITIONAL FINDINGS: No significant additional findings. IMPRESSION: No acute abnormality or significant change. Signer Name: Myles Huizar MD Signed: 01/17/2021 2:45 PM Workstation Name: [id number]
--- NOTE | 2021-01-17 15:00 | Emergency Department Report ---
ED Asthma HPI - General Chief Complaint: Adult Asthma Stated Complaint: MADDI (ASTHMA) Time Seen by Provider: 01/17/21 14:53 Source: patient Mode of arrival: Ambulatory Limitations: No Limitations - History of Present Illness Initial Comments: 60-year-old male with a past medical history presents to the ER today with complaints of a flareup of his asthma. Patient states that his asthma fell about 2 days ago. He has been using his albuterol nebulizer machine, about every 1-2 hours without much relief of his symptoms. He reports productive cough, mild chest tightness and mild shortness of breath. He reports no URI symptoms, fever, chills, ill contacts or any other symptoms at this time. He denies tobacco use. He denies any history of heart disease. He does admit that he has been out of his albuterol MDI. He states that he has been hospitalized for his asthma in the past, the last time was about a year ago. MD Complaint: "asthma attack" -: Gradual (2 days ago ) - Related Data Previous Rx's Medication Instructions Recorded Last Taken Type Acetaminophen [Acetaminophen TAB] 1 tab PO Q4H PRN #15 tablet 10/30/19 Unknown Rx Benzonatate [Tessalon Perles] 100 mg PO Q8H #15 capsule 10/30/19 Unknown Rx Ipratropium/Albuterol Sulfate 1 ampul IH Q6HRT PRN #80 ampul.neb 10/30/19 Unknown Rx [DUONEB *Not for PRN Use*] Azithromycin [Zithromax Z-HANNAH] 250 mg PO DAILY #6 tab 11/20/19 Unknown Rx Codeine Phosphate/Guaifenesin 5 ml PO Q6H PRN #120 ml 11/20/19 Unknown Rx [Guaifenesin-Codeine Syrup] Budesonide [Pulmicort Respules] 0.5 mg IH Q12HRT #30 nebu 03/25/20 Unknown Rx ALBUTEROL NEB's [Proventil 0.083% 2.5 mg IH TID PRN #30 neb 05/17/20 Unknown Rx NEBS] Budesonide/Formoterol Fumarate 1 gm IH DAILY #1 hfa.aer.ad 05/17/20 Unknown Rx [Symbicort 160-4.5 Mcg Inhaler] predniSONE [Deltasone] 50 mg PO QDAY #5 tab 05/17/20 Unknown Rx Benzonatate [Tessalon Perles] 100 mg PO Q8HR PRN #15 capsule 08/13/20 Unknown Rx predniSONE [Deltasone] 50 mg PO QDAY #5 tab 08/13/20 Unknown Rx predniSONE [Deltasone] 40 mg PO QDAY 5 Days #10 tab 12/06/20 Unknown Rx ALBUTEROL NEB's [Proventil 0.083% 2.5 mg IH TID PRN #1 box 01/05/21 Unknown Rx NEBS] methylPREDNISolone [Medrol 4MG 1 dose PO QDAY #1 tab.ds.pk 01/05/21 Unknown Rx DOSEPAK (21 tabs)] Albuterol Sulfate [Proventil Hfa] 6.7 gm IH TID PRN #1 hfa.aer.ad 01/17/21 Unknown Rx Budesonide/Formoterol Fumarate 2 puff IH BID #1 hfa.aer.ad 01/17/21 Unknown Rx [Symbicort 160-4.5 Mcg Inhaler] Montelukast [Singulair] 10 mg PO QPM #30 tablet 01/17/21 Unknown Rx predniSONE [Deltasone] 50 mg PO ONCE #5 tablet 01/17/21 Unknown Rx Allergies Allergy/AdvReac Type Severity Reaction Status Date / Time ibuprofen [From Motrin] Allergy Unknown Verified 01/05/21 13:19 Penicillins AdvReac Swelling Verified 01/05/21 13:19 ED Review of Systems ROS: Stated complaint: MADDI (ASTHMA) Other details as noted in HPI Comment: All other systems reviewed and negative Constitutional: denies: chills, fever Eyes: denies: eye pain, eye discharge, vision change ENT: denies: ear pain, throat pain Respiratory: cough, shortness of breath, wheezing Cardiovascular: chest pain (More chest tightness). denies: palpitations, dyspnea on exertion, orthopnea, edema, syncope, paroxysmal nocturnal dyspnea Endocrine: no symptoms reported Gastrointestinal: denies: abdominal pain, nausea, vomiting, diarrhea, constipation, hematemesis, melena, hematochezia Genitourinary: denies: urgency, dysuria, frequency, hematuria, discharge, testicular pain, testicular mass Musculoskeletal: denies: back pain, joint swelling, arthralgia Skin: denies: rash, lesions Neurological: denies: headache, weakness, paresthesias Psychiatric: denies: anxiety, depression Hematological/Lymphatic: denies: easy bleeding, easy bruising ED Past Medical Hx - Past Medical History Previous Medical History?: Yes Hx Hypertension: No Hx Heart Attack/AMI: No Hx Congestive Heart Failure: No Hx Diabetes: No Hx Deep Vein Thrombosis: No Hx Pulmonary Embolism: No Hx Sickle Cell Disease: No Hx Psychiatric Treatment: Yes (DEPRESSION) Hx Asthma: Yes Hx COPD: No Hx Tuberculosis: No Hx HIV: No - Surgical History Hx Coronary Stent: No Hx Pacemaker: No Hx Internal Defibrillator: No - Social History Smoking Status: Never Smoker Substance Use Type: None - Medications Home Medications: Home Medications Medication Instructions Recorded Confirmed Last Taken Type Acetaminophen [Acetaminophen TAB] 1 tab PO Q4H PRN #15 tablet 10/30/19 Unknown Rx Benzonatate [Tessalon Perles] 100 mg PO Q8H #15 capsule 10/30/19 Unknown Rx Ipratropium/Albuterol Sulfate 1 ampul IH Q6HRT PRN #80 ampul.neb 10/30/19 Unk nown Rx [DUONEB *Not for PRN Use*] Azithromycin [Zithromax Z-HANNAH] 250 mg PO DAILY #6 tab 11/20/19 Unknown Rx Codeine Phosphate/Guaifenesin 5 ml PO Q6H PRN #120 ml 11/20/19 Unknown Rx [Guaifenesin-Codeine Syrup] Budesonide [Pulmicort Respules] 0.5 mg IH Q12HRT #30 nebu 03/25/20 Unknown Rx ALBUTEROL NEB's [Proventil 0.083% 2.5 mg IH TID PRN #30 neb 05/17/20 Unknown Rx NEBS] Budesonide/Formoterol Fumarate 1 gm IH DAILY #1 hfa.aer.ad 05/17/20 Unknown Rx [Symbicort 160-4.5 Mcg Inhaler] predniSONE [Deltasone] 50 mg PO QDAY #5 tab 05/17/20 Unknown Rx Benzonatate [Tessalon Perles] 100 mg PO Q8HR PRN #15 capsule 08/13/20 Unknown Rx predniSONE [Deltasone] 50 mg PO QDAY #5 tab 08/13/20 Unknown Rx predniSONE [Deltasone] 40 mg PO QDAY 5 Days #10 tab 12/06/20 Unknown Rx ALBUTEROL NEB's [Proventil 0.083% 2.5 mg IH TID PRN #1 box 01/05/21 Unknown Rx NEBS] methylPREDNISolone [Medrol 4MG 1 dose PO QDAY #1 tab.ds.pk 01/05/21 Unknown Rx DOSEPAK (21 tabs)] Albuterol Sulfate [Proventil Hfa] 6.7 gm IH TID PRN #1 hfa.aer.ad 01/17/21 Unknown Rx Budesonide/Formoterol Fumarate 2 puff IH BID #1 hfa.aer.ad 01/17/21 Unknown Rx [Symbicort 160-4.5 Mcg Inhaler] Montelukast [Singulair] 10 mg PO QPM #30 tablet 01/17/21 Unknown Rx predniSONE [Deltasone] 50 mg PO ONCE #5 tablet 01/17/21 Unknown Rx ED Physical Exam - General Limitations: No Limitations General appearance: alert, in no apparent distress - Head Head exam: Present: atraumatic, normocephalic, normal inspection - Eye Eye exam: Present: normal appearance, PERRL, EOMI Pupils: Present: normal accommodation - Neck Neck exam: Present: normal inspection, full ROM - Respiratory Respiratory exam: Present: wheezes (Mild expiratory wheezing), decreased breath sounds. Absent: respiratory distress, rales, rhonchi, stridor - Cardiovascular Cardiovascular Exam: Present: regular rate, normal rhythm, normal heart sounds - Extremities Exam Extremities exam: Present: normal inspection. Absent: pedal edema, calf tender ness - Neurological Exam Neurological exam: Present: alert, oriented X3, CN II-XII intact, normal gait - Psychiatric Psychiatric exam: Present: normal affect, normal mood - Skin Skin exam: Present: intact ED Course Vital Signs 01/17/21 01/17/21 01/17/21 13:49 13:50 15:00 Temperature 98.0 F Pulse Rate 102 H Respiratory 20 20 Rate Blood Pressure 133/86 [Right] O2 Sat by Pulse 97 95 Oximetry 01/17/21 16:12 Temperature 98.3 F Pulse Rate 97 H Respiratory 20 Rate Blood Pressure 131/79 [Right] O2 Sat by Pulse 96 Oximetry ED Medical Decision Making - Radiology Data Radiology results: report reviewed Patient: EARLENE TANG MR#: [id number] : 1960 Acct:[id number] Age/Sex: 60 / M ADM Date: 01/17/21 Loc: ED Attending Dr: Ordering Physician: RHEA HAMMER Date of Service: 01/17/21 Procedure(s): XR chest routine 2V Accession Number(s): [id number] cc: RHEA HAMMER Fluoro Time In Minutes: CHEST 2 VIEWS INDICATION / CLINICAL INFORMATION: Cough and shortness of breath. COMPARISON: 12/06/2020. FINDINGS: SUPPORT DEVICES: None. HEART / MEDIASTINUM: The heart size and pulmonary vasculature are normal. LUNGS / PLEURA: No significant pulmonary or pleural abnormality. No pneumothorax. ADDITIONAL FINDINGS: No significant additional findings. IMPRESSION: No acute abnormality or significant change. Signer Name: Myles Huizar MD Signed: 01/17/2021 2:45 PM Workstation Name: [id number] Transcribed By: RT Dictated By: Myles Huizar MD Electronically Authenticated By: Myles Huizar MD Signed Date/Time: 01/17/21 [id number] - Medical Decision Making Patient reports feeling better after nebulizer treatment. Repeat chest auscultation shows improvement of wheezing and air movement. Repeat vital signs normal. Patient is not in any respiratory distress. Chest x-ray shows nothing acute. Patient is stable at this time for discharge with outpatient treatment for his asthma. Patient also requesting refills on his Symbicort and his albuterol. Patient instructed to follow-up with his primary care doctor. Critical care attestation.: If time is entered above; I have spent that time in minutes in the direct care of this critically ill patient, excluding procedure time. ED Disposition Clinical Impression: Asthma attack Disposition: DC-01 TO HOME OR SELFCARE Is pt being admited?: No Does the pt Need Aspirin: No Condition: Stable Instructions: Asthma, Adult Additional Instructions: Recommend that you take the prednisone and Singulair as prescribed. Continue doing your nebulizer treatments every 4-6 hours. It is important that you get your rescue inhaler and your Symbicort filled. Follow-up with the primary care doctor this week. Return to the ER if your symptoms changes or worsens in any way. Prescriptions: predniSONE [Deltasone] 50 mg PO ONCE #5 tablet Albuterol Sulfate [Proventil Hfa] 6.7 gm IH TID PRN #1 hfa.aer.ad PRN Reason: shortness of breath/wheezing Montelukast [Singulair] 10 mg PO QPM #30 tablet Budesonide/Formoterol Fumarate [Symbicort 160-4.5 Mcg Inhaler] 2 puff IH BID #1 hfa.aer.ad Referrals: WEN MEDINA MD [Staff Physician] - 3-5 Days Time of Disposition: 16:27
[2021-01-17] MEDS ORDERED: methylPREDNISolone Sod Succinate 125 MG/2 ML INJ IM ONE (15:49)
[2021-01-17 16:13] VITALS: BP 131/79
== END 2021-01-17 16:40 | disposition home or self-care (01) ==
LOC: ED 13:39
DX: J45.909 Unspecified asthma, uncomplicated (principal); F32.9 Major depressive disorder, single episode, unspecified; Z88.0 Allergy status to penicillin; Z88.8 Allergy status to other drugs, medicaments and biological substances
CPT/HCPCS: 71046; 94640; 96372; 99283; J2930

== ENCOUNTER 2021-02-27 14:08 | Emergency (ER) | payer MEDICARE ==
[2021-02-27 14:16] VITALS: BP 125/100
--- NOTE | 2021-02-27 15:15 | XRay Report ---
CHEST PA AND LATERAL VIEWS INDICATION: SOB. COMPARISON: 03/19/2021 FINDINGS: Support devices: None Heart: Normal and unchanged Lungs/Pleura: No acute pulmonary or pleural findings. IMPRESSION: 1. No significant abnormality and no interval change. Signer Name: John Peoples MD Signed: 02/27/2021 3:10 PM Workstation Name: [id number]
[2021-02-27 15:22] LABS: Basophils # (Auto) 0.1 K/mm3 (0.0-0.1); Basophils % (Auto) 1.1 % (0.0-1.8); Eosinophils # (Auto) 1.2 K/mm3 (0.0-0.4); Eosinophils % (Auto) 12.5 % (0.0-4.3); Hematocrit 47.5 % (35.5-45.6); Hemoglobin 15.8 gm/dl (11.8-15.2); Lymphocytes # (Auto) 2.3 K/mm3 (1.2-5.4); Lymphocytes % (Auto) 24.3 % (13.4-35.0); Mean Corpuscular HGB Conc 33 % (32-34); Mean Corpuscular Volume 82 fl (84-94); Monocytes # (Auto) 0.7 K/mm3 (0.0-0.8); Monocytes % (Auto) 7.4 % (0.0-7.3); Platelet Count 385 K/mm3 (140-440); Red Blood Count 5.79 M/mm3 (3.65-5.03); Red Cell Distribution Width 15.5 % (13.2-15.2)
[2021-02-27 15:38] LABS: BUN/Creatinine Ratio 9; Blood Urea Nitrogen 11 mg/dL (9-20); Calcium 8.7 mg/dL (8.4-10.2); Hemolysis Index 21
[2021-02-27] MEDS ORDERED: IPRATROPIUM 0.02% NEBU 2.5 ML IH ONE (16:30)
[2021-02-27] MEDS ORDERED: ALBUTEROL 2.5 MG/3 ML NEBU IH ONE (16:30)
[2021-02-27] MEDS ORDERED: predniSONE 20 MG TAB PO ONE (16:31)
--- NOTE | 2021-02-27 16:52 | Emergency Department Report ---
ED Shortness of Breath HPI - General Chief Complaint: Adult Asthma Stated Complaint: ASTHMA/TROUBLE BREATHING Time Seen by Provider: 02/27/21 16:29 Source: patient Mode of arrival: Ambulatory Limitations: No Limitations - History of Present Illness Initial Comments: 60-year-old male, history of asthma, presents to ED with wheezing and shortness of breath since 4 AM. Patient states he used his inhaler and nebulizer machine at home, but reports continued wheezing. Patient denies fever, reports some coughing. Patient reports he has been fully vaccinated with both doses of COVID-19 vaccine. Patient denies any tobacco use. MD Complaint: "asthma attack" -: This morning Severity: moderate Consistency: constant Improves With: bronchodilators Worsens With: nothing, exertion Known History Of: asthma Associated Symptoms: cough Treatments Prior to Arrival: bronchodilator - Related Data Home Oxygen Therapy: No Previous Rx's Medication Instructions Recorded Last Taken Type Acetaminophen [Acetaminophen TAB] 1 tab PO Q4H PRN #15 tablet 10/30/19 Unknown Rx Benzonatate [Tessalon Perles] 100 mg PO Q8H #15 capsule 10/30/19 Unknown Rx Ipratropium/Albuterol Sulfate 1 ampul IH Q6HRT PRN #80 ampul.neb 10/30/19 Unknown Rx [DUONEB *Not for PRN Use*] Azithromycin [Zithromax Z-HANNAH] 250 mg PO DAILY #6 tab 11/20/19 Unknown Rx Codeine Phosphate/Guaifenesin 5 ml PO Q6H PRN #120 ml 11/20/19 Unknown Rx [Guaifenesin-Codeine Syrup] Budesonide [Pulmicort Respules] 0.5 mg IH Q12HRT #30 nebu 03/25/20 Unknown Rx ALBUTEROL NEB's [Proventil 0.083% 2.5 mg IH TID PRN #30 neb 05/17/20 Unknown Rx NEBS] Budesonide/Formoterol Fumarate 1 gm IH DAILY #1 hfa.aer.ad 05/17/20 Unknown Rx [Symbicort 160-4.5 Mcg Inhaler] predniSONE [Deltasone] 50 mg PO QDAY #5 tab 05/17/20 Unknown Rx Benzonatate [Tessalon Perles] 100 mg PO Q8HR PRN #15 capsule 08/13/20 Unknown Rx predniSONE [Deltasone] 50 mg PO QDAY #5 tab 08/13/20 Unknown Rx predniSONE [Deltasone] 40 mg PO QDAY 5 Days #10 tab 12/06/20 Unknown Rx ALBUTEROL NEB's [Proventil 0.083% 2.5 mg IH TID PRN #1 box 01/05/21 Unknown Rx NEBS] methylPREDNISolone [Medrol 4MG 1 dose PO QDAY #1 tab.ds.pk 01/05/21 Unknown Rx DOSEPAK (21 tabs)] Albuterol Sulfate [Proventil Hfa] 6.7 gm IH TID PRN #1 hfa.aer.ad 01/17/21 Unknown Rx Budesonide/Formoterol Fumarate 2 puff IH BID #1 hfa.aer.ad 01/17/21 Unknown Rx [Symbicort 160-4.5 Mcg Inhaler] Montelukast [Singulair] 10 mg PO QPM #30 tablet 01/17/21 Unknown Rx predniSONE [Deltasone] 50 mg PO ONCE #5 tablet 01/17/21 Unknown Rx Allergies Allergy/AdvReac Type Severity Reaction Status Date / Time ibuprofen [From Motrin] Allergy Unknown Verified 02/27/21 14:16 Penicillins AdvReac Swelling Verified 02/27/21 14:16 ED Review of Systems ROS: Stated complaint: ASTHMA/TROUBLE BREATHING Other details as noted in HPI Comment: All other systems reviewed and negative Constitutional: denies: chills, fever Respiratory: cough, shortness of breath, wheezing Cardiovascular: denies: chest pain ED Past Medical Hx - Past Medical History Hx Hypertension: No Hx Heart Attack/AMI: No Hx Congestive Heart Failure: No Hx Diabetes: No Hx Deep Vein Thrombosis: No Hx Pulmonary Embolism: No Hx Sickle Cell Disease: No Hx Psychiatric Treatment: Yes (DEPRESSION) Hx Asthma: Yes Hx COPD: No Hx Tuberculosis: No Hx HIV: No - Surgical History Hx Coronary Stent: No Hx Pacemaker: No Hx Internal Defibrillator: No - Social History Smoking Status: Never Smoker Substance Use Type: None - Medications Home Medications: Home Medications Medication Instructions Recorded Confirmed Last Taken Type Acetaminophen [Acetaminophen TAB] 1 tab PO Q4H PRN #15 tablet 10/30/19 Unknown Rx Benzonatate [Tessalon Perles] 100 mg PO Q8H #15 capsule 10/30/19 Unknown Rx Ipratropium/Albuterol Sulfate 1 ampul IH Q6HRT PRN #80 ampul.neb 10/30/19 Unknown Rx [DUONEB *Not for PRN Use*] Azithromycin [Zithromax Z-HANNAH] 250 mg PO DAILY #6 tab 11/20/19 Unknown Rx Codeine Phosphate/Guaifenesin 5 ml PO Q6H PRN #120 ml 11/20/19 Unknown Rx [Guaifenesin-Codeine Syrup] Budesonide [Pulmicort Respules] 0.5 mg IH Q12HRT #30 nebu 03/25/20 Unknown Rx ALBUTEROL NEB's [Proventil 0.083% 2.5 mg IH TID PRN #30 neb 05/17/20 Unknown Rx NEBS] Budesonide/Formoterol Fumarate 1 gm IH DAILY #1 hfa.aer.ad 05/17/20 Unknown Rx [Symbicort 160-4.5 Mcg Inhaler] predniSONE [Deltasone] 50 mg PO QDAY #5 tab 05/17/20 Unknown Rx Benzonatate [Tessalon Perles] 100 mg PO Q8HR PRN #15 capsule 08/13/20 Unknown Rx predniSONE [Deltasone] 50 mg PO QDAY #5 tab 08/13/20 Unknown Rx predniSONE [Deltasone] 40 mg PO QDAY 5 Days #10 tab 12/06/20 Unknown Rx ALBUTEROL NEB's [Proventil 0.083% 2.5 mg IH TID PRN #1 box 01/05/21 Unknown Rx NEBS] methylPREDNISolone [Medrol 4MG 1 dose PO QDAY #1 tab.ds.pk 01/05/21 Unknown Rx DOSEPAK (21 tabs)] Albuterol Sulfate [Proventil Hfa] 6.7 gm IH TID PRN #1 hfa.aer.ad 01/17/21 Unknown Rx Budesonide/Formoterol Fumarate 2 puff IH BID #1 hfa.aer.ad 01/17/21 Unknown Rx [Symbicort 160-4.5 Mcg Inhaler] Montelukast [Singulair] 10 mg PO QPM #30 tablet 01/17/21 Unknown Rx predniSONE [Deltasone] 50 mg PO ONCE #5 tablet 01/17/21 Unknown Rx ED Physical Exam - General Limitations: No Limitations General appearance: alert, in no apparent distress - Head Head exam: Present: atraumatic, normocephalic - Eye Eye exam: Present: normal appearance, EOMI - ENT ENT exam: Present: mucous membranes moist - Neck Neck exam: Present: normal inspection - Respiratory Respiratory exam: Present: wheezes - Cardiovascular Cardiovascular Exam: Present: regular rate, normal rhythm - GI/Abdominal GI/Abdominal exam: Present: soft. Absent: distended, tenderness - Extremities Exam Extremities exam: Present: normal inspection - Neurological Exam Neurological exam: Present: alert, oriented X3 - Psychiatric Psychiatric exam: Present: normal affect, normal mood - Skin Skin exam: Present: warm, dry, intact, normal color ED Course Vital Signs 02/27/21 02/27/21 02/27/21 14:13 15:36 16:58 Temperature 97.9 F Pulse Rate 106 H 96 H Pulse Rate [ 80 Anterior Bilateral Throughout] Respiratory 32 H 22 Rate Respiratory 22 Rate [Anterior Bilateral Throughout] Blood Pressure 125/100 O2 Sat by Pulse 95 96 Oximetry ED Medical Decision Making - Lab Data Result diagrams: 02/27/21 14:50 02/27/21 14:50 - Radiology Data Radiology results: report reviewed, image reviewed - Medical Decision Making 60-year-old male presents to ED with acute asthma exacerbation. Patient with coarse wheezing throughout. O2 sats normal. Chest x-ray normal. Nebulizer treatment was administered. When nurse went to give patient has prednisone, she discovered that he had eloped. - Differential Diagnosis Asthma, pneumonia, pulmonary edema Critical care attestation.: If time is entered above; I have spent that time in minutes in the direct care of this critically ill patient, excluding procedure time. ED Disposition Clinical Impression: Acute asthma exacerbation Disposition: ELOPED Is pt being admited?: No Condition: Stable Referrals: PRIMARY CARE, [Primary Care Provider] - 3-5 Days Time of Disposition: 18:53
== END 2021-02-27 17:51 | disposition left against medical advice (07) ==
LOC: ED 14:08
DX: J45.901 Unspecified asthma with (acute) exacerbation (principal); F32.9 Major depressive disorder, single episode, unspecified; Z79.899 Other long term (current) drug therapy; Z88.0 Allergy status to penicillin; Z88.8 Allergy status to other drugs, medicaments and biological substances
CPT/HCPCS: 36415; 71046; 80048; 85025; 94640; 94644; J7512

== ENCOUNTER 2021-07-21 09:42 | Emergency (ER) | payer MEDICARE ==
[2021-07-21] MEDS: predniSONE 20 MG TAB PO ONE ×2 (10:12→10:25)
[2021-07-21] MEDS: ALBUTEROL 2.5 MG/3 ML NEBU IH ONE ×2 (10:12→10:26)
[2021-07-21] MEDS: IPRATROPIUM 0.02% NEBU 2.5 ML IH ONE ×2 (10:12→10:26)
--- NOTE | 2021-07-21 10:41 | XRay Report ---
CHEST 2 VIEWS INDICATION / CLINICAL INFORMATION: Wheezing, shortness of breath. COMPARISON: 2 views of the chest from 03/17/2021. FINDINGS: SUPPORT DEVICES: None. HEART / MEDIASTINUM: No significant abnormality. LUNGS / PLEURA: No significant pulmonary abnormality. No significant pleural effusion. No pneumothora x. ADDITIONAL FINDINGS: No significant additional findings. IMPRESSION: 1. No acute abnormality of the chest. Signer Name: Tj Elizabeth MD Signed: 07/21/2021 10:37 AM Workstation Name: [id number]
--- NOTE | 2021-07-21 11:05 | Emergency Department Report ---
ED Asthma HPI - General Chief Complaint: Adult Asthma Stated Complaint: ASTHMA/ TROUBLE BREATHING Time Seen by Provider: 07/21/21 09:57 Source: patient Mode of arrival: Ambulatory Limitations: No Limitations - History of Present Illness Initial Comments: This is a 60-year-old man nontoxic, well nourished in appearance, no acute signs of distress presents to the ED with c/o of acute on chronic asthma exacerbation. Patient stated she is out of her albuterol inhaler 1 month. Patient stated that she has seasonal allergies to pollen and has been outside that might have triggered her symptoms. Patient denies any cough. Patient denies any sick contact. Patient denies any recent travels, long car, recent hospital stays. Patient denies any calf pain or calf tenderness. Still has some shortness of breath. Patient denies any chest pain, fever, chills, nausea, vomiting, hemoptysis, numbness, tingling, headache or stiff neck. Patient allergies to penicillin and ibuprofen. MD Complaint: "asthma attack", wheezing -: days(s) Asthma History: childhood onset Severity: mild Context: ran out of meds Associated Symptoms: none. denies: productive cough, dry cough, fever, chest pain, hemoptysis, leg edema, syncope - Related Data Current Asthma Therapy: none Previous Rx's Medication Instructions Recorded Last Taken Type Acetaminophen [Acetaminophen TAB] 1 tab PO Q4H PRN #15 tablet 10/30/19 Unknown Rx Benzonatate [Tessalon Perles] 100 mg PO Q8H #15 capsule 10/30/19 Unknown Rx Ipratropium/Albuterol Sulfate 1 ampul IH Q6HRT PRN #80 ampul.neb 10/30/19 Unknown Rx [DUONEB *Not for PRN Use*] Azithromycin [Zithromax Z-HANNAH] 250 mg PO DAILY #6 tab 11/20/19 Unknown Rx Codeine Phosphate/Guaifenesin 5 ml PO Q6H PRN #120 ml 11/20/19 Unknown Rx [Guaifenesin-Codeine Syrup] Budesonide [Pulmicort Respules] 0.5 mg IH Q12HRT #30 nebu 03/25/20 Unknown Rx ALBUTEROL NEB's [Proventil 0.083% 2.5 mg IH TID PRN #30 neb 05/17/20 Unknown Rx NEBS] Budesonide/Formoterol Fumarate 1 gm IH DAILY #1 hfa.aer.ad 05/17/20 Unknown Rx [Symbicort 160-4.5 Mcg Inhaler] predniSONE [Deltasone] 50 mg PO QDAY #5 tab 05/17/20 Unknown Rx Benzonatate [Tessalon Perles] 100 mg PO Q8HR PRN #15 capsule 08/13/20 Unknown Rx predniSONE [Deltasone] 50 mg PO QDAY #5 tab 08/13/20 Unknown Rx predniSONE [Deltasone] 40 mg PO QDAY 5 Days #10 tab 12/06/20 Unknown Rx ALBUTEROL NEB's [Proventil 0.083% 2.5 mg IH TID PRN #1 box 01/05/21 Unknown Rx NEBS] methylPREDNISolone [Medrol 4MG 1 dose PO QDAY #1 tab.ds.pk 01/05/21 Unknown Rx DOSEPAK (21 tabs)] Albuterol Sulfate [Proventil Hfa] 6.7 gm IH TID PRN #1 hfa.aer.ad 01/17/21 Unknown Rx Budesonide/Formoterol Fumarate 2 puff IH BID #1 hfa.aer.ad 01/17/21 Unknown Rx [Symbicort 160-4.5 Mcg Inhaler] Montelukast [Singulair] 10 mg PO QPM #30 tablet 01/17/21 Unknown Rx predniSONE [Deltasone] 50 mg PO ONCE #5 tablet 01/17/21 Unknown Rx Albuterol Mdi (or & Nicu Only) 2 puff IH QID PRN #8.5 gram 07/21/21 Unknown Rx [ProAir HFA Inhaler] Albuterol Sulfate [Albuterol 0.63% 0.63 mg IH TID PRN #1 box 07/21/21 Unknown Rx NEBS] Prednisone [predniSONE 10 mg 10 mg PO .TAPER #1 tab.ds.pk 07/21/21 Unknown Rx (6-Day Pack, 21 Tabs)] Allergies Allergy/AdvReac Type Severity Reaction Status Date / Time ibuprofen [From Motrin] Allergy Unknown Verified 07/21/21 09:52 Penicillins AdvReac Swelling Verified 07/21/21 09:52 ED Review of Systems ROS: Stated complaint: ASTHMA/ TROUBLE BREATHING Other details as noted in HPI Comment: All other systems reviewed and negative Constitutional: denies: chills, fever Eyes: denies: eye pain, eye discharge, vision change ENT: denies: ear pain, throat pain Respiratory: shortness of breath, wheezing. denies: cough, SOB with exertion, SOB at rest Cardiovascular: denies: chest pain, palpitations Endocrine: no symptoms reported Gastrointestinal: denies: abdominal pain, nausea, diarrhea Genitourinary: denies: urgency, dysuria Musculoskeletal: denies: back pain, joint swelling, arthralgia Skin: denies: rash, lesions Neurological: denies: headache, weakness, paresthesias Psychiatric: denies: anxiety, depression Hematological/Lymphatic: denies: easy bleeding, easy bruising ED Past Medical Hx - Past Medical History Hx Hypertension: No Hx Heart Attack/AMI: No Hx Congestive Heart Failure: No Hx Diabetes: No Hx Deep Vein Thrombosis: No Hx Pulmonary Embolism: No Hx Sickle Cell Disease: No Hx Psychiatric Treatment: Yes (DEPRESSION) Hx Asthma: Yes Hx COPD: No Hx Tuberculosis: No Hx HIV: No - Surgical History Hx Coronary Stent: No Hx Pacemaker: No Hx Internal Defibrillator: No - Social History Smoking Status: Never Smoker Substance Use Type: None - Medications Home Medications: Home Medications Medication Instructions Recorded Confirmed Last Taken Type Acetaminophen [Acetaminophen TAB] 1 tab PO Q4H PRN #15 tablet 10/30/19 Unknown Rx Benzonatate [Tessalon Perles] 100 mg PO Q8H #15 capsule 10/30/19 Unknown Rx Ipratropium/Albuterol Sulfate 1 ampul IH Q6HRT PRN #80 ampul.neb 10/30/19 Unknown Rx [DUONEB *Not for PRN Use*] Azithromycin [Zithromax Z-HANNAH] 250 mg PO DAILY #6 tab 11/20/19 Unknown Rx Codeine Phosphate/Guaifenesin 5 ml PO Q6H PRN #120 ml 11/20/19 Unknown Rx [Guaifenesin-Codeine Syrup] Budesonide [Pulmicort Respules] 0.5 mg IH Q12HRT #30 nebu 03/25/20 Unknown Rx ALBUTEROL NEB's [Proventil 0.083% 2.5 mg IH TID PRN #30 neb 05/17/20 Unknown Rx NEBS] Budesonide/Formoterol Fumarate 1 gm IH DAILY #1 hfa.aer.ad 05/17/20 Unknown Rx [Symbicort 160-4.5 Mcg Inhaler] predniSONE [Deltasone] 50 mg PO QDAY #5 tab 05/17/20 Unknown Rx Benzonatate [Tessalon Perles] 100 mg PO Q8HR PRN #15 capsule 08/13/20 Unknown Rx predniSONE [Deltasone] 50 mg PO QDAY #5 tab 08/13/20 Unknown Rx predniSONE [Deltasone] 40 mg PO QDAY 5 Days #10 tab 12/06/20 Unknown Rx ALBUTEROL NEB's [Proventil 0.083% 2.5 mg IH TID PRN #1 box 01/05/21 Unknown Rx NEBS] methylPREDNISolone [Medrol 4MG 1 dose PO QDAY #1 tab.ds.pk 01/05/21 Unknown Rx DOSEPAK (21 tabs)] Albuterol Sulfate [Proventil Hfa] 6.7 gm IH TID PRN #1 hfa.aer.ad 01/17/21 Unknown Rx Budesonide/Formoterol Fumarate 2 puff IH BID #1 hfa.aer.ad 01/17/21 Unknown Rx [Symbicort 160-4.5 Mcg Inhaler] Montelukast [Singulair] 10 mg PO QPM #30 tablet 01/17/21 Unknown Rx predniSONE [Deltasone] 50 mg PO ONCE #5 tablet 01/17/21 Unknown Rx Albuterol Mdi (or & Nicu Only) 2 puff IH QID PRN #8.5 gram 07/21/21 Unknown Rx [ProAir HFA Inhaler] Albuterol Sulfate [Albuterol 0.63% 0.63 mg IH TID PRN #1 box 07/21/21 Unknown Rx NEBS] Prednisone [predniSONE 10 mg 10 mg PO .TAPER #1 tab.ds.pk 07/21/21 Unknown Rx (6-Day Pack, 21 Tabs)] ED Physical Exam - General Limitations: No Limitations General appearance: alert, in no apparent distress - Head Head exam: Present: atraumatic, normocephalic - Eye Eye exam: Present: normal appearance - Neck Neck exam: Present: normal inspection, full ROM. Absent: lymphadenopathy - Respiratory Respiratory exam: Present: wheezes (Bilateral expiratory and inspiratory wheezing). Absent: respiratory distress, rales, rhonchi, stridor, chest wall tenderness, accessory muscle use, decreased breath sounds, prolonged expiratory - Cardiovascular Cardiovascular Exam: Present: regular rate, normal rhythm, normal heart sounds. Absent: bradycardia, tachycardia, irregular rhythm, systolic murmur, diastolic murmur, rubs, gallop - GI/Abdominal GI/Abdominal exam: Present: soft. Absent: distended, tenderness - Extremities Exam Extremities exam: Present: normal inspection, full ROM, normal capillary refill. Absent: tenderness - Back Exam Back exam: Present: normal inspection, full ROM - Neurological Exam Neurological exam: Present: alert, oriented X3, normal gait - Psychiatric Psychiatric exam: Present: normal affect, normal mood - Skin Skin exam: Present: warm, dry, intact, normal color. Absent: rash ED Course Vital Signs 07/21/21 07/21/21 07/21/21 09:49 09:53 09:55 Temperature 98.5 F 98.6 F 97.3 F L Pulse Rate 91 H 86 88 Respiratory 24 16 Rate Blood Pressure 101/60 101/58 103/84 [Left] O2 Sat by Pulse 100 98 Oximetry 07/21/21 11:20 Temperature Pulse Rate 78 Respiratory 14 Rate Blood Pressure 108/66 [Left] O2 Sat by Pulse 98 Oximetry - Reevaluation(s) Reevaluation #1: 07/21/21 11:05 Patient is speaking in full sentences with no signs of distress noted. ED Medical Decision Making - Radiology Data [facility] [address] [place] [address] XRay Report Signed Patient: EARLENE TANG MR#: [id number] : 1960 Acct:[id number] Age/Sex: 60 / M ADM Date: 07/21/21 Loc: ED Attending Dr: Ordering Physician: ROMULO GALLARDO NP Date of Service: 07/21/21 Procedure(s): XR chest routine 2V Accession Number(s): [id number] cc: ROMULO GALLARDO NP Fluoro Time In Minutes: CHEST 2 VIEWS INDICATION / CLINICAL INFORMATION: Wheezing, shortness of breath. COMPARISON: 2 views of the chest from 03/17/2021. FINDINGS: SUPPORT DEVICES: None. HEART / MEDIASTINUM: No significant abnormality. LUNGS / PLEURA: No significant pulmonary abnormality. No significant pleural effusion. No pneumothorax. ADDITIONAL FINDINGS: No significant additional findings. IMPRESSION: 1. No acute abnormality of the chest. Signer Name: Tj Elizabeth MD Signed: 07/21/2021 10:37 AM Workstation Name: [email or web address] Transcribed By: KENNETH Dictated By: Tj Elizabeth MD Electronically Authenticated By: Tj Elizabeth MD Signed Date/Time: 07/21/21 1037 DD/ 1036 TD/TT: - Medical Decision Making This is a 60-year-old male that presents with asthma exacerbation. Patient is stable and was examined by me. Chest x-ray has been obtained and dictated by the radiologist within normal limits. Patient is notified of the x-ray report with no questions noted by the patient. Patient did receive breathing treatment and steroids in the ED which patient the symptoms has resolved and subsided. Posttreatment and there is no wheezing upon auscultation. Patient is discharged with albuterol and prednisone. Patient was referred to Follow-up with a primary care doctor in 3-5 days or if symptoms worsen and continue return to emergency room as soon as possible. At time of discharge, the patient does not seem toxic or ill in appearance. No acute signs of distress noted. Patient agrees to discharge treatment plan of care. No further questions noted by the patient. This chart is dictated with using [employer] Dictation Program Critical care attestation.: If time is entered above; I have spent that time in minutes in the direct care of this critically ill patient, excluding procedure time. ED Disposition Clinical Impression: Asthma exacerbation Qualifiers: Asthma severity: mild Asthma persistence: intermittent Qualified Code(s): J45.21 - Mild intermittent asthma with (acute) exacerbation Disposition: 01 HOME / SELF CARE / HOMELESS Is pt being admited?: No Does the pt Need Aspirin: No Condition: Stable Instructions: Asthma, Adult Additional Instructions: Follow-up with a primary care doctor in 3-5 days or if symptoms worsen and continue return to emergency room as soon as possible. Prescriptions: Albuterol Sulfate [Albuterol 0.63% NEBS] 0.63 mg IH TID PRN #1 box PRN Reason: Wheezing Prednisone [predniSONE 10 mg (6-Day Pack, 21 Tabs)] 10 mg PO .TAPER #1 tab.ds.pk Albuterol Mdi (or & Nicu Only) [ProAir HFA Inhaler] 2 puff IH QID PRN #8.5 gram PRN Reason: Shortness Of Breath Referrals: PRIMARY CAREMD [Primary Care Provider] - 3-5 Days WEN MEDINA MD [Staff Physician] - 3-5 Days Forms: Work/School Release Form(ED) Time of Disposition: 11:23
[2021-07-21 11:21] VITALS: BP 108/66
== END 2021-07-21 11:29 | disposition home or self-care (01) ==
LOC: ED 09:42
DX: J45.901 Unspecified asthma with (acute) exacerbation (principal); Z88.0 Allergy status to penicillin; Z88.6 Allergy status to analgesic agent
CPT/HCPCS: 71046; 94640; 99283; J7512

== ENCOUNTER 2022-03-26 13:23 | Emergency (ER) | payer MEDICARE ==
--- NOTE | 2022-03-26 17:25 | XRay Report ---
Right shoulder, 4 views HISTORY: Fall, pain COMPARISON: None FINDINGS: No acute fracture or malalignment. Moderate acromioclavicular osteoarthritis with prominent undersurface osteophyte of the distal acromion. Subacromial space is preserved. Soft tissues are unr emarkable. Visualized lungs are clear. IMPRESSION: No acute findings. Signer Name: Carter Lujan MD Signed: 03/26/2022 5:20 PM Workstation Name: [id number]
[2022-03-26 17:35] LABS: Hematocrit 42.8 % (35.5-45.6); Hemoglobin 13.9 gm/dl (11.8-15.2); Mean Corpuscular HGB Conc 32 % (32-34); Mean Corpuscular Volume 79 fl (84-94); Platelet Count 446 K/mm3 (140-440); Red Blood Count 5.45 M/mm3 (3.65-5.03); Red Cell Distribution Width 16.1 % (13.2-15.2)
[2022-03-26 17:54] LABS: Alanine Aminotransferase 17 units/L (7-56); Albumin 4.6 g/dL (3.9-5); BUN/Creatinine Ratio 11; Blood Urea Nitrogen 10 mg/dL (9-20); Calcium 9.8 mg/dL (8.4-10.2); Hemolysis Index 3
[2022-03-26 22:36] LABS: Amphetamine Screen,Urine Negative; Benzodiazepines Screen,Urine Negative; Methadone Screen,Urine Negative; Opiate Screen,Urine Negative
--- NOTE | 2022-03-26 22:36 | Emergency Department Report ---
HPI - General Chief Complaint: Fall Time Seen by Provider: 03/26/22 16:30 - HPI HPI: Room 36 The patient is a 61-year-old male present with chief complaint of suicidal ideation. Patient states "I am tired of living" and states he is felt that way for the past "couple of days." The patient states that he uses cocaine and is tired of living that way. The patient states his initial plan was to get his gun and shoot himself but his daughter removed all the guns from the house. The patient states his second plan was to overdose on another family members Percocets but those were also taken away. Patient states last night he accidentally fell down the stairs injuring his right shoulder and neck. Patient denies loss of consciousness. Patient denies throwing himself down the stairs intentionally. ED Past Medical Hx - Past Medical History Hx Psychiatric Treatment: Yes (DEPRESSION) Hx Asthma: Yes - Family History Family history: no significant - Social History Smoking Status: Former Smoker (None x15 years) Substance Use Type: Alcohol (Occasional), Cocaine - Medications Home Medications: Home Medications Medication Instructions Recorded Confirmed Last Taken Type Acetaminophen [Acetaminophen TAB] 1 tab PO Q4H PRN #15 tablet 10/30/19 Unknown Rx Benzonatate [Tessalon Perles] 100 mg PO Q8H #15 capsule 10/30/19 Unknown Rx Ipratropium/Albuterol Sulfate 1 ampul IH Q6HRT PRN #80 ampul.neb 10/30/19 Unknown Rx [DUONEB *Not for PRN Use*] Azithromycin [Zithromax Z-HANNAH] 250 mg PO DAILY #6 tab 11/20/19 Unknown Rx Codeine Phosphate/Guaifenesin 5 ml PO Q6H PRN #120 ml 11/20/19 Unknown Rx [Guaifenesin-Codeine Syrup] Budesonide [Pulmicort Respules] 0.5 mg IH Q12HRT #30 nebu 03/25/20 Unknown Rx ALBUTEROL NEB's [Proventil 0.083% 2.5 mg IH TID PRN #30 neb 05/17/20 Unknown Rx NEBS] Budesonide/Formoterol Fumarate 1 gm IH DAILY #1 hfa.aer.ad 05/17/20 Unknown Rx [Symbicort 160-4.5 Mcg Inhaler] predniSONE [Deltasone] 50 mg PO QDAY #5 tab 05/17/20 Unknown Rx Benzonatate [Tessalon Perles] 100 mg PO Q8HR PRN #15 capsule 08/13/20 Unknown Rx predniSONE [Deltasone] 50 mg PO QDAY #5 tab 08/13/20 Unknown Rx predniSONE [Deltasone] 40 mg PO QDAY 5 Days #10 tab 12/06/20 Unknown Rx ALBUTEROL NEB's [Proventil 0.083% 2.5 mg IH TID PRN #1 box 01/05/21 Unknown Rx NEBS] methylPREDNISolone [Medrol 4MG 1 dose PO QDAY #1 tab.ds.pk 01/05/21 Unknown Rx DOSEPAK (21 tabs)] Albuterol Sulfate [Proventil Hfa] 6.7 gm IH TID PRN #1 hfa.aer.ad 01/17/21 Unknown Rx Budesonide/Formoterol Fumarate 2 puff IH BID #1 hfa.aer.ad 01/17/21 Unknown Rx [Symbicort 160-4.5 Mcg Inhaler] Montelukast [Singulair] 10 mg PO QPM #30 tablet 01/17/21 Unknown Rx predniSONE [Deltasone] 50 mg PO ONCE #5 tablet 01/17/21 Unknown Rx Albuterol Mdi (or & Nicu Only) 2 puff IH QID PRN #8.5 gram 07/21/21 Unknown Rx [ProAir HFA Inhaler] Albuterol Sulfate [Albuterol 0.63% 0.63 mg IH TID PRN #1 box 07/21/21 Unknown Rx NEBS] Prednisone [predniSONE 10 mg 10 mg PO .TAPER #1 tab.ds.pk 07/21/21 Unknown Rx (6-Day Pack, 21 Tabs)] ED Review of Systems ROS: Stated complaint: FELL DOWN 7 STEPS/LAST NIGHT Other details as noted in HPI Constitutional: no symptoms reported Eyes: denies: eye pain ENT: denies: throat pain Respiratory: no symptoms reported Cardiovascular: denies: chest pain Endocrine: no symptoms reported Gastrointestinal: denies: abdominal pain Genitourinary: denies: dysuria Musculoskeletal: arthralgia, myalgia. denies: back pain Neurological: denies: weakness Psychiatric: suicidal thoughts Physical Exam - Physical Exam Vital Signs: Vital Signs 05/29/22 05/29/22 05/29/22 14:32 21:54 21:58 Temperature 98.9 F 97.9 F 97.8 F Pulse Rate 98 H 81 81 Respiratory 18 15 15 Rate Blood Pressure 111/70 136/80 Blood Pressure 136/80 [Left] O2 Sat by Pulse 98 100 100 Oximetry Physical Exam: GENERAL: The patient is well-developed well-nourished male lying on stretcher not appearing to be in acute distress. Sullen mood HEENT: Normocephalic. Atraumatic. Extraocular motions are intact. Patient has moist mucous membranes. NECK: Supple. Right paraspinous tenderness to palpation. No axial step-off CHEST/LUNGS: Clear to auscultation. There is no respiratory distress noted. HEART/CARDIOVASCULAR: Regular. There is no tachycardia. There is no gallop rub or murmur. ABDOMEN: Abdomen is soft, nontender. Patient has normal bowel sounds. There is no abdominal distention. SKIN: There is no rash. There is no edema. There is no diaphoresis. NEURO: The patient is awake, alert, and oriented. The patient is cooperative. The patient has no focal neurologic deficits. The patient has normal speech. GCS 15 MUSCULOSKELETAL: There is no tenderness of the thoracic or lumbar axial spine. There is no evidence of acute injury. ED Course Vital Signs 03/26/22 03/26/22 03/26/22 14:32 21:54 21:58 Temperature 98.9 F 97.9 F 97.8 F Pulse Rate 98 H 81 81 Respiratory 18 15 15 Rate Blood Pressure 111/70 136/80 Blood Pressure 136/80 [Left] O2 Sat by Pulse 98 100 100 Oximetry ED Medical Decision Making - Lab Data Result diagrams: 03/26/22 16:55 03/26/22 16:55 Laboratory Tests 03/26/22 03/26/22 03/26/22 16:55 16:55 16:55 WBC 8.6 RBC 5.45 H Hgb 13.9 Hct 42.8 MCV 79 L MCH 25 L MCHC 32 RDW 16.1 H Plt Count 446 H Sodium 142 Potassium 4.5 Chloride 102.9 Carbon Dioxide 28 Anion Gap 16 BUN 10 Creatinine 0.9 Estimated GFR > 60 BUN/Creatinine Ratio 11 Glucose 87 Calcium 9.8 Total Bilirubin 0.50 AST 15 ALT 17 Alkaline Phosphatase 94 Total Protein 7.5 Albumin 4.6 Albumin/Globulin Ratio 1.6 Urine Color Urine Turbidity Urine pH Ur Specific [place] Urine Protein Urine Glucose (UA) Urine Ketones Urine Blood Urine Nitrite Urine Bilirubin Urine Urobilinogen Ur Leukocyte Esterase Urine WBC (Auto) Urine RBC (Auto) U Epithel Cells (Auto) Urine Mucus Salicylates < 0.3 L Urine Opiates Screen Urine Methadone Screen Acetaminophen Ur Barbiturates Screen Ur Phencyclidine Scrn Ur Amphetamines Screen U Benzodiazepines Scrn Urine Cocaine Screen U Marijuana (THC) Screen Drugs of Abuse Note Plasma/Serum Alcohol 03/26/22 03/26/22 03/26/22 16:55 16:55 22:07 WBC RBC Hgb Hct MCV MCH MCHC RDW Plt Count Sodium Potassium Chloride Carbon Dioxide Anion Gap BUN Creatinine Estimated GFR BUN/Creatinine Ratio Glucose Calcium Total Bilirubin AST ALT Alkaline Phosphatase Total Protein Albumin Albumin/Globulin Ratio Urine Color Yellow Urine Turbidity Clear Urine pH 5.0 Ur Specific [place] 1.027 Urine Protein <15 mg/dl Urine Glucose (UA) Neg Urine Ketones Neg Urine Blood Sm Urine Nitrite Neg Urine Bilirubin Neg Urine Urobilinogen 4.0 Ur Leukocyte Esterase Neg Urine WBC (Auto) 1.0 Urine RBC (Auto) 5.0 U Epithel Cells (Auto) < 1.0 Urine Mucus 3+ Salicylates Urine Opiates Screen Urine Methadone Screen Acetaminophen 5.0 L Ur Barbiturates Screen Ur Phencyclidine Scrn Ur Amphetamines Screen U Benzodiazepines Scrn Urine Cocaine Screen U Marijuana (THC) Screen Drugs of Abuse Note Plasma/Serum Alcohol < 0.01 03/26/22 22:07 WBC RBC Hgb Hct MCV MCH MCHC RDW Plt Count Sodium Potassium Chloride Carbon Dioxide Anion Gap BUN Creatinine Estimated GFR BUN/Creatinine Ratio Glucose Calcium Total Bilirubin AST ALT Alkaline Phosphatase Total Protein Albumin Albumin/Globulin Ratio Urine Color Urine Turbidity Urine pH Ur Specific [place] Urine Protein Urine Glucose (UA) Urine Ketones Urine Blood Urine Nitrite Urine Bilirubin Urine Urobilinogen Ur Leukocyte Esterase Urine WBC (Auto) Urine RBC (Auto) U Epithel Cells (Auto) Urine Mucus Salicylates Urine Opiates Screen Negative Urine Methadone Screen Negative Acetaminophen Ur Barbiturates Screen Negative Ur Phencyclidine Scrn Negative Ur Amphetamines Screen Negative U Benzodiazepines Scrn Negative Urine Cocaine Screen Positive U Marijuana (THC) Screen Positive Drugs of Abuse Note Disclamer Plasma/Serum Alcohol - Radiology Data Radiology results: report reviewed (CT head, CT cervical spine, right shoulder x-ray), image reviewed (CT head, CT cervical spine, right shoulder x-ray) interpreted by me: Right shoulder x-ray-no acute fracture, no dislocation [address] [address] Cat Scan Report Signed Patient: EARLENE TANG MR#: [id number] : 1960 Acct:[id number] Age/Sex: 61 / M ADM Date: 03/26/22 Loc: ED Attending Dr: Ordering Physician: GIORGI WASHINGTON MD Date of Service: 03/26/22 Procedure(s): CT head/brain wo con Accession Number(s): [id number] cc: GIORGI WASHINGTON MD CT HEAD WITHOUT CONTRAST INDICATION / CLINICAL INFORMATION: Pain after fall down stairs. TECHNIQUE: CT head was performed without administration of intravenous contrast. All CT scans at this location are performed using CT dose reduction for ALARA by means of automated exposure control. COMPARISON: None available. FINDINGS: CEREBRAL HEMISPHERES: There is no evidence of large territorial infarction or significant abnormality of frances-white matter differentiation. Ventricles within normal limits. No midline shift. Basal cisterns patent. HEMORRHAGE: None. CEREBELLUM / BRAINSTEM: No significant abnor mality. ORBITS: No significant abnormality. SOFT TISSUES: No significant abnormality. SKULL: No significant abnormality. PARANASAL SINUSES / MASTOID AIR CELLS: Normal as visualized. ADDITIONAL FINDINGS: None. IMPRESSION: 1. No acute intracranial abnormality. Signer Name: Davidson Vazquez II, MD Signed: 03/26/2022 11:14 PM Workstation Name: [id number] Transcribed By: GABO Dictated By: DAVIDSON VAZQUEZ II, MD Electronically Authenticated By: DAVIDSON VAZQUEZ II, MD Signed Date/Time: 03/26/222313 DD/ 11 TD/TT: [address] [address] Cat Scan Report Signed Patient: EARLENE TANG MR#: [id number] : 1960 Acct:[id number] Age/Sex: 61 / M ADM Date: 03/26/22 Loc: ED Attending Dr: Ordering Physician: GIORGI WASHINGTON MD Date of Service: 03/26/22 Procedure(s): CT cervical spine wo con Accession Number(s): [id number] cc: GIORGI WASHINGTON MD CT CERVICAL SPINE WITHOUT CONTRAST INDICATION / CLINICAL INFORMATION: Pain after fall down stairs. TECHNIQUE: Axial CT images were obtained through t he cervical spine. Sagittal and coronal reformatted images were produced. All CT scans at this location are performed using CT dose reduction for ALARA by means of automated exposure control. COMPARISON: None available. FINDINGS: MANDIBLE: No significant abnormality of the visualized mandible or TMJs. SKULL BASE: No significant abnormality of the skull base. CRANIOCERVICAL JUNCTION: No significant abnormality of the craniocervical junction. CERVICAL SPINE: Cervical spine demonstrates normal alignment without evidence of acute fracture. No severe central stenosis. Mild central stenosis at C3-4 as result of central disc bulge. SOFT TISSUES: No significant abnormality of soft tissues or musculature. THYROID: No significant abnormality. UPPER CHEST: No significant abnormality of the visualized chest. ADDITIONAL FINDINGS: None. IMPRESSION: 1. No evidence of acute osseous injury. Signer Name: Davidson Vazquez II, MD Signed: 03/26/2022 11:16 PM Workstation Name: [id number] Transcribed By: GABO Dictated By: DAVIDSON VAZQUEZ II, MD Electronically Authenticated By: DAVIDSON VAZQUEZ II, MD S igned Date/Time: 03/26/222315 DD/ 13 TD/TT: [facility] [address] [place] [address] XRay Report Signed Patient: EARLENE TANG MR#: [id number] : 1960 Acct:[id number] Age/Sex: 61 / M ADM Date: 03/26/22 Loc: ED Attending Dr: Ordering Physician: TREASURE SORTO Date of Service: 03/26/22 Pro cedure(s): XR shoulder 2+V RT Accession Number(s): [id number] cc: TREASURE SORTO Fluoro Time In Minutes: Right shoulder, 4 views HISTORY: Fall, pain COMPARISON: None FINDINGS: No acute fracture or malalignment. Moderate acromioclavicular osteoarthritis with prominent undersurface osteophyte of the distal acromion. Subacromial space is preserved. Soft tissues are unremarkable. Visualized lungs are clear. IMPRESSION: No acute findings. Signer Name: Praveen Lujan MD Signed: 03/26/2022 5:20 PM Workstation Name: [id number] Transcribed By: MANJEET Dictated By: PRAVEEN LUJAN MD Electronically Authenticated By: PRAVEEN LUJAN MD Signed Date/Time: 03/26/221719 DD/ 18 TD/TT: - Differential Diagnosis Suicidal ideation, closed head injury, cervical strain, cervical fracture Critical care attestation.: If time is entered above; I have spent that time in minutes in the direct care of this critically ill patient, excluding procedure time. ED Disposition Clinical Impression: Suicidal ideation, Contusion of right shoulder, Cervical strain Disposition: [address] [place] [address] Is pt being admited?: No Does the pt Need Aspirin: No Condition: Stable Referrals: PRIMARY CARE, [Primary Care Provider] - 3-5 Days Time of Disposition: 00:18 (Awaiting psych eval)
[2022-03-26 22:49] LABS: Bilirubin,Urine NEG (Negative); Blood,Urine SM (Negative); Color,Urine Yellow (Yellow); Mucus,Urine 3+ /HPF; Protein,Urine <15 mg/dL mg/dL (Negative)
[2022-03-26 22:56] LABS: Cannabinoid Screen,Urine Positive; Cocaine Screen,Urine Positive
--- NOTE | 2022-03-26 23:18 | Cat Scan Report ---
CT HEAD WITHOUT CONTRAST INDICATION / CLINICAL INFORMATION: Pain after fall down stairs. TECHNIQUE: CT head was performed without administration of intravenous contrast. All CT scans at this location are performed using CT dose reduction for ALARA by means of automated exposure control. COMPARISON: None available. FINDINGS: CEREBRAL HEMISPHERES: There is no evidence of large territorial infarction or significant abnormality of frances-white matter differentiation. Ventricles within normal limits. No midline shift. Basal ciste rns patent. HEMORRHAGE: None. CEREBELLUM / BRAINSTEM: No significant abnormality. ORBITS: No significant abnormality. SOFT TISSUES: No significant abnormality. SKULL: No significant abnormality. PARANASAL SINUSES / MASTOID AIR CELLS: Normal as visualized. ADDITIONAL FINDINGS: None. IMPRESSION: 1. No acute intracranial abnormality. Signer Name: Johnny Perez II, MD Signed: 03/26/2022 11:14 PM Workstation Name: [id number]
--- NOTE | 2022-03-26 23:20 | Cat Scan Report ---
CT CERVICAL SPINE WITHOUT CONTRAST INDICATION / CLINICAL INFORMATION: Pain after fall down stairs. TECHNIQUE: Axial CT images were obtained through the cervical spine. Sagittal and coronal reformatted images were produced. All CT scans at this location are performed using CT dose reduction for ALARA by means of automated exposure control. COMPARISON: None available. FINDINGS: MANDIBLE: No significant abnormality of the visualized mandible or TMJs. SKULL BASE: No significant abnormality of the skull base. CRANIOCERVICAL JUNCTION: No significant abnormality of the craniocervical junction. CERVICAL SPINE: Cervical spine demonstrates normal alignment without evidence of acute fracture. No s evere central stenosis. Mild central stenosis at C3-4 as result of central disc bulge. SOFT TISSUES: No significant abnormality of soft tissues or musculature. THYROID: No significant abnormality. UPPER CHEST: No significant abnormality of the visualized chest. ADDITIONAL FINDINGS: None. IMPRESSION: 1. No evidence of acute osseous injury. Signer Name: Johnny Perez II, MD Signed: 03/26/2022 11:16 PM Workstation Name: [id number]
--- NOTE | 2022-03-27 10:07 | Consultation ---
History of Present Illness - Reason for Consult Consult date: 03/27/22 Reason for consult: suicidal ideation - History of Present Psychiatric Illness The patient is a 61 year old male with history of depression and cocaine use disorder, severe who presents to the ED with suicidal ideation. The patient is calm, alert and oriented x3. He reports crack cocaine use for the past 10 years stating " I'm tried of the way I have been living with drugs and alcohol." The patient reports daily crack cocaine use but unable to state exact amount; reports using alcohol occasional, states he last used about 2 days ago. He endorses depression and suicidal ideation with a plan to " take a bottle of pills." He denies hallucinations. The patient reports cravings for crack cocaine . PAST PSYCHIATRIC HISTORY: Diagnoses:Depression, Cocaine use disorder Suicide attempts or Self-harm behavior:Yes Prior psychiatric hospitalizations: Yes Substance Abuse history: Crack cocaine, alcohol Previous psychiatric medications tried:Unable to recall Outpatient treatment:Unknown PAST MEDICAL HISTORY: None reported or document Family Psychiatric History: None reported or documented SOCIAL HISTORY Marital Status: Living Arrangements: Lives with daughter Employment Status: Disability Access to guns/weapons: Denies Education:12th grade History of Abuse: Denies Legal History: Denies REVIEW OF SYSTEMS Constitutional: Negative for weight loss ENT: Negative for stridor Respiratory: Negative for cough or hemoptysis All other systems reviewed and are negative MENTAL STATUS EXAMINATION General Appearance and Behavior: Age appropriate, wearing appropriate clothes, cooperative, polite with questioning, good eye contact, calm, polite Cooperation: cooperative Psychomotor Behavior: Psychomotor normal Mood: Depressed Affect and affective range: Congruent with stated mood Thought Process:Goal directed Thought Content:Suicidal Speech: Normal volume, Regular rate and rhythm Suicidal Ideation: Yes Homicidal Ideation: Denies Hallucination: Denies Delusions: None elicited Impulse Control: limited Insight and Judgment: Limited Memory: intact Attention: attentive Orientation: Alert and oriented Diagnoses: Major depressive disorder Treatment Plan 1013 Continue home meds Start CIWA Sertraline 25mg po daily Trazodone 50ng po QHS PSYCHOTHERAPY: Supportive psychotherapy provided MEDICAL: Per primary team DELIRIUM PRECAUTIONS: Please re-orient patient frequently, keep lights on during the day, and minimize benzodiazepines and opiates as these medications could worsen patient's confusion. TAX AUDITOR: Per medical team DISPOSITION: Recommend acute psychiatric inpatient treatment. Will follow. Thank you for the consult. Case staffed with Dr. Marin Medications and Allergies Medications and Allergies Allergies Allergy/AdvReac Type Severity Reaction Status Date / Time ibuprofen [From Motrin] Allergy Unknown Verified 07/21/21 09:52 Penicillins AdvReac Swelling Verified 07/21/21 09:52 Home Medications Medication Instructions Recorded Confirmed Last Taken Type Acetaminophen [Acetaminophen TAB] 1 tab PO Q4H PRN #15 tablet 10/30/19 Unknown Rx Benzonatate [Tessalon Perles] 100 mg PO Q8H #15 capsule 10/30/19 Unknown Rx Ipratropium/Albuterol Sulfate 1 ampul IH Q6HRT PRN #80 ampul.neb 10/30/19 Unknown Rx [DUONEB *Not for PRN Use*] Azithromycin [Zithromax Z-HANNAH] 250 mg PO DAILY #6 tab 11/20/19 Unknown Rx Codeine Phosphate/Guaifenesin 5 ml PO Q6H PRN #120 ml 11/20/19 Unknown Rx [Guaifenesin-Codeine Syrup] Budesonide [Pulmicort Respules] 0.5 mg IH Q12HRT #30 nebu 03/25/20 Unknown Rx ALBUTEROL NEB's [Proventil 0.083% 2.5 mg IH TID PRN #30 neb 05/17/20 Unknown Rx NEBS] Budesonide/Formoterol Fumarate 1 gm IH DAILY #1 hfa.aer.ad 05/17/20 Unknown Rx [Symbicort 160-4.5 Mcg Inhaler] predniSONE [Deltasone] 50 mg PO QDAY #5 tab 05/17/20 Unknown Rx Benzonatate [Tessalon Perles] 100 mg PO Q8HR PRN #15 capsule 08/13/20 Unknown Rx predniSONE [Deltasone] 50 mg PO QDAY #5 tab 08/13/20 Unknown Rx predniSONE [Deltasone] 40 mg PO QDAY 5 Days #10 tab 12/06/20 Unknown Rx ALBUTEROL NEB's [Proventil 0.083% 2.5 mg IH TID PRN #1 box 01/05/21 Unknown Rx NEBS] methylPREDNISolone [Medrol 4MG 1 dose PO QDAY #1 tab.ds.pk 01/05/21 Unknown Rx DOSEPAK (21 tabs)] Albuterol Sulfate [Proventil Hfa] 6.7 gm IH TID PRN #1 hfa.aer.ad 01/17/21 Unknown Rx Budesonide/Formoterol Fumarate 2 puff IH BID #1 hfa.aer.ad 01/17/21 Unknown Rx [Symbicort 160-4.5 Mcg Inhaler] Montelukast [Singulair] 10 mg PO QPM #30 tablet 01/17/21 Unknown Rx predniSONE [Deltasone] 50 mg PO ONCE #5 tablet 01/17/21 Unknown Rx Albuterol Mdi (or & Nicu Only) 2 puff IH QID PRN #8.5 gram 07/21/21 Unknown Rx [ProAir HFA Inhaler] Albuterol Sulfate [Albuterol 0.63% 0.63 mg IH TID PRN #1 box 07/21/21 Unknown Rx NEBS] Prednisone [predniSONE 10 mg 10 mg PO .TAPER #1 tab.ds.pk 07/21/21 Unknown Rx (6-Day Pack, 21 Tabs)] Mental Status Exam - Vital signs Last Vital Signs Temp 98.2 F 03/27/22 08:38 Pulse 93 H 03/27/22 08:38 Resp 18 03/27/22 08:38 BP 111/69 03/27/22 08:38 Pulse Ox 98 03/27/22 08:36 Results Result Diagrams: 03/26/22 16:55 03/26/22 16:55 Abnormal lab results 03/26/22 03/26/22 03/26/22 Range/Units 16:55 16:55 16:55 RBC 5.45 H (3.65-5.03) M/mm3 MCV 79 L (84-94) fl MCH 25 L (28-32) pg RDW 16.1 H (13.2-15.2) % Plt Count 446 H (140-440) K/mm3 Salicylates < 0.3 L (2.8-20.0) mg/dL Acetaminophen 5.0 L (10.0-30.0) ug/mL All other labs normal.
[2022-03-27] MEDS ORDERED: SERTRALINE 25 MG TAB PO SCH (11:00)
[2022-03-27] MEDS ORDERED: LORazepam 2 MG TAB PO PRN (11:00)
[2022-03-27] MEDS ORDERED: traZODone 50 MG TAB PO SCH (11:00)
--- NOTE | 2022-03-27 12:27 | Event Note ---
Date: 03/27/22 medically cleared vss, no distress , assessed and waiting placement
[2022-03-27 13:37] VITALS: BP 124/65
--- NOTE | 2022-04-04 12:01 | Electrocardiograph Report ---
[facility] Test Date: 2022-03-25 Test Time: 18:40:46 Pat Name: EARLENE TANG Department: Room: Gender: M Staff Electrical Engineer: LEEANNA : 1960 Requested By: GIORGI WASHINGTON Order Number: [id number] Reading MD: Eli Arellano Measurements Intervals [place] Rate: 108 P: 39 [place]: 160 QRS: -17 QRSD: 82 T: 122 QT: 322 QTc: 432 Interpretive Statements Sinus tachycardia Probable LVH with secondary repol abnrm Anterior Q waves, possibly due to LVH No previous ECG available for comparison Electronically Signed On 04-04-2022 12:01:36 EDT by Eli Arellano
== END 2022-03-27 13:38 ==
LOC: ED 13:23
DX: S40.012A Contusion of left shoulder, initial encounter (principal); S16.1XXA Strain of muscle, fascia and tendon at neck level, initial encounter; R45.851 Suicidal ideations; R51.9 Headache, unspecified; M79.10 Myalgia, unspecified site; Z20.822 Contact with and (suspected) exposure to COVID-19; F32.9 Major depressive disorder, single episode, unspecified; J45.909 Unspecified asthma, uncomplicated; F17.290 Nicotine dependence, other tobacco product, uncomplicated; W10.8XXA Fall (on) (from) other stairs and steps, initial encounter; Y92.89 Other specified places as the place of occurrence of the external cause; Y93.89 Activity, other specified; Y99.8 Other external cause status
CPT/HCPCS: 36415; 70450; 72125; 73030; 80053; 80307; 81001; 85027; 93005; 99285; U0003; 80320; G0480

== ENCOUNTER 2022-07-06 14:46 | Emergency (ER) | payer SELFPAY ==
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
--- NOTE | 2022-07-06 17:20 | XRay Report ---
CHEST 1 VIEW 07/06/2022 4:13 PM INDICATION / CLINICAL INFORMATION: Medical Clearance Psych. COMPARISON: None available. FINDINGS: SUPPORT DEVICES: None. HEART / MEDIASTINUM: No significant abnormality. LUNGS / PLEURA: No significant pulmonary or pleural abnormality. No pneumothorax. ADDITIONAL FINDINGS: None IMPRESSION: 1. No acute chest process. Signer Name: Myles Stevens MD Signed: 07/06/2022 5:16 PM Workstation Name: [id number]
[2022-07-06 19:10] LABS: Basophils % (Auto) 0.4 % (0.0-1.8); Eosinophils # (Auto) 0.5 K/mm3 (0.0-0.4); Eosinophils % (Auto) 6.4 % (0.0-4.3); Hematocrit 44.4 % (35.5-45.6); Lymphocytes # (Auto) 1.9 K/mm3 (1.2-5.4); Lymphocytes % (Auto) 24.7 % (13.4-35.0); Mean Corpuscular HGB Conc 32 % (32-34); Mean Corpuscular Volume 81 fl (84-94); Monocytes # (Auto) 0.8 K/mm3 (0.0-0.8); Monocytes % (Auto) 9.7 % (0.0-7.3); Platelet Count 311 K/mm3 (140-440); Red Blood Count 5.52 M/mm3 (3.65-5.03)
[2022-07-06 19:39] LABS: Alanine Aminotransferase 20 units/L (7-56); Albumin 4.3 g/dL (3.9-5); BUN/Creatinine Ratio 6; Blood Urea Nitrogen 7 mg/dL (9-20); Hemolysis Index 8
[2022-07-06 19:43] LABS: Amphetamine Screen,Urine Negative; Benzodiazepines Screen,Urine Negative; Methadone Screen,Urine Negative; Opiate Screen,Urine Negative
[2022-07-06 19:49] LABS: Color,Urine Yellow (Yellow)
[2022-07-06 19:51] LABS: Mucus,Urine 3+ /HPF
[2022-07-06 19:57] LABS: Cannabinoid Screen,Urine Positive; Cocaine Screen,Urine Positive
--- NOTE | 2022-07-07 00:27 | Emergency Department Report ---
HPI - General Chief Complaint: Psych PUI?: No Time Seen by Provider: 07/06/22 18:01 - HPI HPI: 61-year-old male with multiple medical comorbidities presents with SI. Patient states "I just want to and go away. Maybe 5 take some bleach all go away and I want her to anymore." When asked further, patient will not elaborate c oncerning what is triggering these thoughts. He denies any auditory visual hallucinations to this provider. Pain currently 0-10. ED Past Medical Hx - Past Medical History Previous Medical History?: Yes Hx Hypertension: No Hx Heart Attack/AMI: No Hx Congestive Heart Failure: No Hx Diabetes: No Hx Deep Vein Thrombosis: No Hx Pulmonary Embolism: No Hx Sickle Cell Disease: No Hx Psychiatric Treatment: Yes (DEPRESSION) Hx Asthma: Yes Hx COPD: No Hx Tuberculosis: No Hx HIV: No - Surgical History Past Surgical History?: Yes Hx Coronary Stent: No Hx Pacemaker: No Hx Internal Defibrillator: No - Social History Smoking Status: Current Some Day Smoker Substance Use Type: Alcohol, Cocaine - Medications Home Medications: Home Medications Medication Instructions Recorded Confirmed Last Taken Type Acetaminophen [Acetaminophen TAB] 1 tab PO Q4H PRN #15 tablet 10/30/19 Unknown Rx Benzonatate [Tessalon Perles] 100 mg PO Q8H #15 capsule 10/30/19 Unknown Rx Ipratropium/Albuterol Sulfate 1 ampul IH Q6HRT PRN #80 ampul.neb 10/30/19 Unknown Rx [DUONEB *Not for PRN Use*] Azithromycin [Zithromax Z-HANNAH] 250 mg PO DAILY #6 tab 11/20/19 Unknown Rx Codeine Phosphate/Guaifenesin 5 ml PO Q6H PRN #120 ml 11/20/19 Unknown Rx [Guaifenesin-Codeine Syrup] Budesonide [Pulmicort Respules] 0.5 mg IH Q12HRT #30 nebu 03/25/20 Unknown Rx ALBUTEROL NEB's [Proventil 0.083% 2.5 mg IH TID PRN #30 neb 05/17/20 Unknown Rx NEBS] Budesonide/Formoterol Fumarate 1 gm IH DAILY #1 hfa.aer.ad 05/17/20 Unknown Rx [Symbicort 160-4.5 Mcg Inhaler] predniSONE [Deltasone] 50 mg PO QDAY #5 tab 05/17/20 Unknown Rx Benzonatate [Tessalon Perles] 100 mg PO Q8HR PRN #15 capsule 08/13/20 Unknown Rx predniSONE [Deltasone] 50 mg PO QDAY #5 tab 08/13/20 Unknown Rx predniSONE [Deltasone] 40 mg PO QDAY 5 Days #10 tab 12/06/20 Unknown Rx ALBUTEROL NEB's [Proventil 0.083% 2.5 mg IH TID PRN #1 box 01/05/21 Unknown Rx NEBS] methylPREDNISolone [Medrol 4MG 1 dose PO QDAY #1 tab.ds.pk 01/05/21 Unknown Rx DOSEPAK (21 tabs)] Albuterol Sulfate [Proventil Hfa] 6.7 gm IH TID PRN #1 hfa.aer.ad 01/17/21 Unknown Rx Budesonide/Formoterol Fumarate 2 puff IH BID #1 hfa.aer.ad 01/17/21 Unknown Rx [Symbicort 160-4.5 Mcg Inhaler] Montelukast [Singulair] 10 mg PO QPM #30 tablet 01/17/21 Unknown Rx predniSONE [Deltasone] 50 mg PO ONCE #5 tablet 01/17/21 Unknown Rx Albuterol Mdi (or & Nicu Only) 2 puff IH QID PRN #8.5 gram 07/21/21 Unknown Rx [ProAir HFA Inhaler] Albuterol Sulfate [Albuterol 0.63% 0.63 mg IH TID PRN #1 box 07/21/21 Unknown Rx NEBS] Prednisone [predniSONE 10 mg 10 mg PO .TAPER #1 tab.ds.pk 07/21/21 Unknown Rx (6-Day Pack, 21 Tabs)] ED Review of Systems ROS: Stated complaint: SOB, ASTHMA Other details as noted in HPI Comment: All other systems reviewed and negative Physical Exam - Physical Exam Vital Signs: Vital Signs 07/06/22 07/06/22 07/06/22 14:52 17:25 17:41 Temperature 98.3 F 98 F Pulse Rate 100 H 74 Respiratory 20 16 Rate Blood Pressure 116/81 136/89 [Right] O2 Sat by Pulse 97 99 97 Oximetry 07/06/22 21:00 Temperature 99.3 F Pulse Rate 84 Respiratory 18 Rate Blood Pressure 103/70 [Right] O2 Sat by Pulse 98 Oximetry General: Gen: pt is well appearing, no acute distress HEENT: Normocephalic atraumatic pupils equally round and reactive to light extraocular muscles intact sclera anicteric Neck: Full range of motion, no midline spinal tenderness palpation, no JVD, no carotid bruits, no nuchal rigidity CVS: S1-S2 regular rate and rhythm with no gallops rubs or murmurs, chest wall nontender Pulmonary: Clear to auscultation bilaterally, no wheezes rales or rhonchi Abdomen: Soft nondistended nontender no guarding or rebound tenderness, no palpable deformities or step-offs, normal active bowel sounds, no hepatosplenomegaly, no pulsatile masses : Deferred Extremities: No cyanosis no clubbing no edema, intact distal peripheral pulses, Integumentary: Skin normal, no petechia no purpura no abscess no lacerations no evidence of trauma no evidence of infection Neuro: Patient is awake alert and oriented to person place time situation, mentating well, cranial nerves II through XII intact, no focal neurodeficits, sensation grossly tact Psych: Calm cooperative, mood affect normal ED Course Vital Signs 07/06/22 07/06/22 07/06/22 14:52 17:25 17:41 Temperature 98.3 F 98 F Pulse Rate 100 H 74 Respiratory 20 16 Rate Blood Pressure 116/81 136/89 [Right] O2 Sat by Pulse 97 99 97 Oximetry 07/06/22 21:00 Temperature 99.3 F Pulse Rate 84 Respiratory 18 Rate Blood Pressure 103/70 [Right] O2 Sat by Pulse 98 Oximetry ED Medical Decision Making - Lab Data Result diagrams: 07/06/22 18:38 07/06/22 18:38 - Medical Decision Making 61-year-old with extensive past medical history presents for evaluation of active suicidal ideation. Vital signs stable. Patient is nontoxic-appearing. Urine drug screen positive for cocaine and marijuana. Remainder of labs normal. COVID test pending at the time of this dictation. Patient is deemed medically cleared by this provider. 1013 form signed. Patient will be kept in the psychiatric holding area and will await formal disposition by psychiatry. Critical care attestation.: If time is entered above; I have spent that time in minutes in the direct care of this critically ill patient, excluding procedure time. ED Disposition Clinical Impression: Suicidal ideation, Cocaine abuse, Marijuana abuse Disposition: 30 STILL A PATIENT Is pt being admited?: No Does the pt Need Aspirin: No Condition: Stable
--- NOTE | 2022-07-07 06:36 | Event Note ---
61-year-old male presenting here with complaint of suicidal ideations. He is on 1013 hold. Still awaiting mental health evaluation. Endorses continued SI this morning. No acute events overnight.
--- NOTE | 2022-07-07 11:05 | Consultation ---
History of Present Illness - Reason for Consult Consult date: 07/07/22 Reason for consult: SI, depression - History of Present Psychiatric Illness The patient was seen today. He makes poor eye contact. His affect is flat. The patient says he was trying to drink bleach to end his life. He says "I'm tired of living." He says "drugs done destroyed everything in my life." The patient says his own children wont speak to him. He says he is very depressed, homeless and has no family support. The patient endorses crack cocaine use. He denies hallucinations. PAST PSYCHIATRIC HISTORY: Diagnoses: depression Suicide attempts or Self-harm behavior: Yes Prior psychiatric hospitalizations: Yes Substance Abuse history: crack cocaine Previous psychiatric medications tried: seroquel Outpatient treatment: [facility] PAST MEDICAL HISTORY: None reported Family Psychiatric History: None reported or documented SOCIAL HISTORY Marital Status: Living Arrangements: homeless Employment Status: Unemployed Access to guns/weapons: Denies Education: History of Abuse:Denies Legal History: Denies REVIEW OF SYSTEMS Constitutional: Negative for weight loss ENT: Negative for stridor Respiratory: Negative for cough or hemoptysis All other systems reviewed and are negative MENTAL STATUS EXAMINATION General Appearance and Behavior: Age appropriate, wearing appropriate clothes, cooperative, polite with questioning, good eye contact Cooperation: cooperative Psychomotor Behavior: Psychomotor normal Mood: Depressed Affect and affective range: congruent with stated affect Thought Process: goal directed Thought Content: None Speech: Normal volume, Regular rate and rhythm Suicidal Ideation: Yes Homicidal Ideation: Denies Hallucination: Denies Delusions: None elicited Impulse Control: Impaired Insight and Judgment: Limited Memory: Intact Attention: attentive Orientation: Alert and oriented Diagnoses: Major Depressive Disorder Intentional Overdose Cocaine Use Disorder Treatment Plan 1013 Seroquel 50mg po BID Prozac 10mg po daily Trazodone 50mg po qhs Medical: Per primary Sitter: defer to primary Disposition: Recommend acute psychiatric inpatient treatment Will follow. Thanks Case staffed with Dr. Marin Medications and Allergies Allergies Allergy/AdvReac Type Severity Reaction Status Date / Time ibuprofen [From Motrin] Allergy Mild Unknown Verified 07/06/22 14:54 Penicillins Allergy Mild Swelling Verified 07/06/22 14:54 Home Medications Medication Instructions Recorded Confirmed Last Taken Type Acetaminophen [Acetaminophen TAB] 1 tab PO Q4H PRN #15 tablet 10/30/19 Unknown Rx Benzonatate [Tessalon Perles] 100 mg PO Q8H #15 capsule 10/30/19 Unknown Rx Ipratropium/Albuterol Sulfate 1 ampul IH Q6HRT PRN #80 ampul.neb 10/30/19 Unknown Rx [DUONEB *Not for PRN Use*] Azithromycin [Zithromax Z-HANNAH] 250 mg PO DAILY #6 tab 11/20/19 Unknown Rx Codeine Phosphate/Guaifenesin 5 ml PO Q6H PRN #120 ml 11/20/19 Unknown Rx [Guaifenesin-Codeine Syrup] Budesonide [Pulmicort Respules] 0.5 mg IH Q12HRT #30 nebu 03/25/20 Unknown Rx ALBUTEROL NEB's [Proventil 0.083% 2.5 mg IH TID PRN #30 neb 05/17/20 Unknown Rx NEBS] Budesonide/Formoterol Fumarate 1 gm IH DAILY #1 hfa.aer.ad 05/17/20 Unknown Rx [Symbicort 160-4.5 Mcg Inhaler] predniSONE [Deltasone] 50 mg PO QDAY #5 tab 05/17/20 Unknown Rx Benzonatate [Tessalon Perles] 100 mg PO Q8HR PRN #15 capsule 08/13/20 Unknown Rx predniSONE [Deltasone] 50 mg PO QDAY #5 tab 08/13/20 Unknown Rx predniSONE [Deltasone] 40 mg PO QDAY 5 Days #10 tab 12/06/20 Unknown Rx ALBUTEROL NEB's [Proventil 0.083% 2.5 mg IH TID PRN #1 box 01/05/21 Unknown Rx NEBS] methylPREDNISolone [Medrol 4MG 1 dose PO QDAY #1 tab.ds.pk 01/05/21 Unknown Rx DOSEPAK (21 tabs)] Albuterol Sulfate [Proventil Hfa] 6.7 gm IH TID PRN #1 hfa.aer.ad 01/17/21 Unknown Rx Budesonide/Formoterol Fumarate 2 puff IH BID #1 hfa.aer.ad 01/17/21 Unknown Rx [Symbicort 160-4.5 Mcg Inhaler] Montelukast [Singulair] 10 mg PO QPM #30 tablet 01/17/21 Unknown Rx predniSONE [Deltasone] 50 mg PO ONCE #5 tablet 01/17/21 Unknown Rx Albuterol Mdi (or & Nicu Only) 2 puff IH QID PRN #8.5 gram 07/21/21 Unknown Rx [ProAir HFA Inhaler] Albuterol Sulfate [Albuterol 0.63% 0.63 mg IH TID PRN #1 box 07/21/21 Unknown Rx NEBS] Prednisone [predniSONE 10 mg 10 mg PO .TAPER #1 tab.ds.pk 07/21/21 Unknown Rx (6-Day Pack, 21 Tabs)] Mental Status Exam - Vital signs Last Vital Signs Temp 98.5 F 07/07/22 08:55 Pulse 94 H 07/07/22 08:55 Resp 18 07/07/22 08:55 BP 123/69 07/07/22 08:55 Pulse Ox 98 07/06/22 21:00 Results Result Diagrams: 07/06/22 18:38 07/06/22 18:38 Abnormal lab results 07/06/22 07/06/22 07/06/22 Range/Units 18:04 18:38 18:38 RBC 5.52 H (3.65-5.03) M/mm3 MCV 81 L (84-94) fl MCH 25 L (28-32) pg RDW 16.0 H (13.2-15.2) % [place] % (Auto) 9.7 H (0.0-7.3) % Eos % (Auto) 6.4 H (0.0-4.3) % Eos # (Auto) 0.5 H (0.0-0.4) K/mm3 Sodium 147 H (137-145) mmol/L BUN 7 L (9-20) mg/dL Glucose 74 L (75-100) mg/dL Specific [place] (Man) 1.036 H (1.003-1.030) Salicylates (2.8-20.0) mg/dL Acetaminophen (10.0-30.0) ug/mL 07/06/22 07/06/22 Range/Units 18:38 18:38 RBC (3.65-5.03) M/mm3 MCV (84-94) fl MCH (28-32) pg RDW (13.2-15.2) % [place] % (Auto) (0.0-7.3) % Eos % (Auto) (0.0-4.3) % Eos # (Auto) (0.0-0.4) K/mm3 Sodium (137-145) mmol/L BUN (9-20) mg/dL Glucose (75-100) mg/dL Specific [place] (Man) (1.003-1.030) Salicylates < 0.3 L (2.8-20.0) mg/dL Acetaminophen 5.0 L (10.0-30.0) ug/mL All other labs normal.
[2022-07-07] MEDS ORDERED: FLUoxetine 10 MG TAB PO SCH (12:00)
[2022-07-07] MEDS: QUEtiapine 25 MG TAB PO SCH ×2 (16:16→22:32)
[2022-07-07] MEDS: traZODone 50 MG TAB PO SCH (22:32)
--- NOTE | 2022-07-08 06:53 | Event Note ---
Date: 07/08/22 Patient had no acute events overnight. This morning states he feels pretty much the same and endorses SI. He was evaluated yesterday by mental health and remains on 1013 hold.
--- NOTE | 2022-07-08 09:35 | Progress Note ---
Subjective - Reason for Consult Consult date: 07/08/22 Reason for consult: SI, depression, substance use - Chief Complaint Chief complaint: The patient was seen today. His affect is flat. He appears withdrawn and very depressed. He still endorses suicidal thoughts, and says "I'm not going to tell you" when asked about a plan. He denies hallucinations. REVIEW OF SYSTEMS Constitutional: Negative for weight loss ENT: Negative for stridor Respiratory: Negative for cough or hemoptysis All other systems reviewed and are negative MENTAL STATUS EXAMINATION General Appearance and Behavior: Age appropriate, wearing appropriate clothes, cooperative, polite with questioning, good eye contact Cooperation: cooperative Psychomotor Behavior: Psychomotor normal Mood: Depressed Affect and affective range: congruent with stated affect Thought Process: goal directed Thought Content: None Speech: Normal volume, Regular rate and rhythm Suicidal Ideation: Yes Homicidal Ideation: Denies Hallucination: Denies Delusions: None elicited Impulse Control: Impaired Insight and Judgment: Limited Memory: Intact Attention: attentive Orientation: Alert and oriented Diagnoses: Major Depressive Disorder Intentional Overdose Cocaine Use Disorder Treatment Plan 1013 Increase Seroquel 75mg po BID Increase Prozac 20mg po daily Start Depakote DR 125mg po BID Medical: Per primary Sitter: defer to primary Disposition: Recommend acute psychiatric inpatient treatment Will follow. Thanks Case staffed with Dr. Marin Mental Status Exam - Vital signs Last Vital Signs Temp 98.7 F 07/07/22 20:37 Pulse 91 H 07/07/22 20:37 Resp 18 07/07/22 20:37 BP 116/78 07/07/22 20:37 Pulse Ox 99 07/07/22 20:37
[2022-07-08] MEDS: DIVALPROEX DR 125 MG TAB PO SCH ×2 (09:46→22:00)
[2022-07-08] MEDS: QUEtiapine 25 MG TAB PO SCH ×2 (09:47→22:00)
[2022-07-08] MEDS: FLUoxetine 20 MG CAP PO SCH (09:47)
[2022-07-08] MEDS: traZODone 50 MG TAB PO SCH (22:00)
--- NOTE | 2022-07-09 06:16 | Event Note ---
Date: 07/09/22 No acute events occurred overnight. Patient states his mental condition is unchanged and still endorses suicidal ideations. He remains on 1013 hold.
[2022-07-09 07:28] VITALS: BP 118/73
--- NOTE | 2022-07-09 09:18 | Progress Note ---
Subjective - Reason for Consult Consult date: 07/09/22 Reason for consult: depression, SI - Chief Complaint Chief complaint: The patient was seen today. His affect is flat. He makes poor eye contact. He says nothing has changed. He says he's still depressed and has no desire to live. The patient looks very depressed and withdrawn. REVIEW OF SYSTEMS Constitutional: Negative for weight loss ENT: Negative for stridor Respiratory: Negative for cough or hemoptysis All other systems reviewed and are negative MENTAL STATUS EXAMINATION General Appearance and Behavior: Age appropriate, wearing appropriate clothes, cooperative, polite with questioning, good eye contact Cooperation: cooperative Psychomotor Behavior: Psychomotor normal Mood: Depressed Affect and affective range: congruent with stated affect Thought Process: goal directed Thought Content: None Speech: Normal volume, Regular rate and rhythm Suicidal Ideation: Yes Homicidal Ideation: Denies Hallucination: Denies Delusions: None elicited Impulse Control: Impaired Insight and Judgment: Limited Memory: Intact Attention: attentive Orientation: Alert and oriented Diagnoses: Major Depressive Disorder Intentional Overdose Cocaine Use Disorder Treatment Plan 1013 Seroquel 75mg po BID Prozac 20mg po daily Increase Depakote DR 125mg po TID Medical: Per primary Sitter: defer to primary Disposition: Recommend acute psychiatric inpatient treatment Will follow. Thanks Case staffed with Dr. Marin Mental Status Exam - Vital signs Last Vital Signs Temp 98.7 F 07/09/22 07:27 Pulse 89 07/09/22 07:27 Resp 18 07/09/22 07:27 BP 118/73 07/09/22 07:27 Pulse Ox 95 07/09/22 07:28
[2022-07-09] MEDS: QUEtiapine 25 MG TAB PO SCH (10:15)
[2022-07-09] MEDS: FLUoxetine 20 MG CAP PO SCH (10:15)
[2022-07-09] MEDS ORDERED: DIVALPROEX DR 125 MG TAB PO SCH (14:00)
== END 2022-07-09 12:33 ==
LOC: ED 14:46
DX: R45.851 Suicidal ideations (principal); F14.10 Cocaine abuse, uncomplicated; F12.10 Cannabis abuse, uncomplicated; F32.A Depression, unspecified; J45.909 Unspecified asthma, uncomplicated; Z20.822 Contact with and (suspected) exposure to COVID-19; F17.200 Nicotine dependence, unspecified, uncomplicated
CPT/HCPCS: 36415; 71045; 80053; 80307; 81001; 84443; 85025; 99285; U0003; 80320; 99284; G0480